=== PATIENT | female | born 1955 | race Hispanic/Latino ===

== ENCOUNTER 2024-04-06 15:07 | Inpatient (IN) | payer OTHER, MEDICARE ==
[~2024-04-06] VITALS: Ht 157.5 cm; Wt 71.9 kg
[2024-04-06] MEDS: morPHINE 4 MG SYG IVP ONE (16:05)
[2024-04-06] MEDS: 0.9%NACL 1000ML 1,000 ML IV ONE ×2 (16:05→16:51)
[2024-04-06] MEDS: ondanSETRON 4MG INJ IV ONE (16:05)
[2024-04-06 16:15] LABS: BASOPHILS % (AUTO) 0.4 % (0.0-5.0); EOSINOPHILS # (AUTO) 0.02 K/uL (0.00-0.70); EOSINOPHILS % (AUTO) 0.1 % (0.0-8.0); HEMATOCRIT 44.2 % (36-48); IMMATURE GRANULOCYTE ABSOLUTE 0.49 K/uL (0-1); LYMPHOCYTES # (AUTO) 1.4 K/uL (1.0-4.8); LYMPHOCYTES % (AUTO) 5.2 % (21.0-51.0); MEAN CORPUSCULAR HEMOGLOBIN 27.8 pg (27.0-33.0); MEAN CORPUSCULAR HGB CONC 33.3 g/dL (32.0-36.0); MEAN CORPUSCULAR VOLUME 83.7 fL (79-99); MONOCYTES # (AUTO) 1.6 K/uL (0.1-1.0); MONOCYTES % (AUTO) 5.6 % (3.0-13.0); NEUTROPHILS # (AUTO) 24.2 K/uL (1.8-7.7); NEUTROPHILS % (AUTO) 86.9 % (40.0-77.0); PLATELET COUNT (AUTO) 274 K/uL (130-400); RED BLOOD CELL COUNT(AUTO) 5.28 MIL/uL (4.00-5.50); RED CELL DISTRIBUTION WIDTH 14.2 % (11.0-15.5); WHITE BLOOD COUNT (AUTO) 27.8 K/uL (4.8-10.8)
[2024-04-06 16:28] LABS: CREATININE 1.3 mg/dL (0.5-1.0); POTASSIUM 3.9 mmol/L (3.5-5.1)
[2024-04-06 16:40] LABS: ALBUMIN 2.5 g/dL (3.5-5.0); BILIRUBIN,TOTAL 0.7 mg/dL (0.2-1.0); TOTAL PROTEIN, SERUM 7.4 g/dL (6.0-8.3)
[2024-04-06] MEDS: 0.9% NACL 500ML IV.SOLN 500 ML IV ONE (16:53)
[2024-04-06] MEDS: metRONIDazole 500MG/100ML BAG IV SCH (17:29)
[2024-04-06] MEDS: INSULIN humuLIN R 100 UNIT/ML 3ML IV SCH (19:43)
[2024-04-06] MEDS: levoFLOXacin 500 MG/D5W 100 ML 100 ML IV SCH (20:21)
[2024-04-06 20:47] VITALS: BP 157/89; PULSE 91; RESP 20; TEMP 98; O2SAT 97
[2024-04-06] MEDS ORDERED: doCUSate SODIUM 100 MG CAP PO PRN (21:00)
[2024-04-06] MEDS ORDERED: hydrALAZine 20MG/ML VIAL IV PRN (21:00)
[2024-04-06] MEDS ORDERED: TEMAZepam 15 MG CAPSULE PO PRN (21:00)
[2024-04-06] MEDS ORDERED: acetaMINOPHEN 650 MG SUPPOSITORY RC PRN (21:00)
[2024-04-06] MEDS: levoFLOXacin 500 MG/D5W 100 ML 100 ML IV ONE (21:03)
[2024-04-06 21:52] LABS: ABG BASE EXCESS -7.6 mmol/L (-2.0-3.0); ABG HCO3 17.4 mmol/L (21.0-28.0); ABG OXYGEN SATURATION 96.4 % (94.0-98.0); ABG PCO2 34 mmHg (32-45); ABG PH 7.324 (7.350-7.450); CARBON MONOXIDE 0.1 % (0.5-1.5); HHb 3.6; PO2, ARTERIAL BG 88.5 mmHg (83.0-108.0); VENT MODE, BG RA (ROOM AIR)
[2024-04-06] MEDS ORDERED: PoTASSium chloRIDE 20MEQ ER 20 MEQ ERTAB PO PRN (22:00)
[2024-04-06] MEDS ORDERED: PoTASSium chl 10% ELIXIR 20MEQ 20 MEQ/15 ML UDCUP PO PRN (22:00)
[2024-04-06] MEDS: 0.9%NACL 1000ML 1,000 ML IV SCH (22:19)
[2024-04-06] MEDS: doCUSate SODIUM 100 MG CAP PO SCH (22:19)
[2024-04-06 23:00] LABS: APPEARANCE,URINE CLOUDY (CLEAR); BILIRUBIN,URINE NEGATIVE (NEGATIVE); COLOR,URINE YELLOW (YELLOW); GLUCOSE, URINE (UA) 500 mg/dL (NEGATIVE); KETONES,URINE 40 mg/dL (NEGATIVE); LEUKOCYTE ESTERASE ,URINE NEGATIVE Leu/uL (NEGATIVE); MUCUS,URINE FEW LPF (None Seen); NITRATE,URINE NEGATIVE (NEGATIVE); OCCULT BLOOD,URINE NEGATIVE (NEGATIVE); PH,URINE 5.5 (5.0-8.0); PROTEIN,URINE 30 mg/dL (NEGATIVE); SQUAMOUS EPITHELIAL CELL,UR FEW /HPF (0-2); UROBILINOGEN,URINE 0.2 mg/dL (0.2-1.0)
[2024-04-07] VITALS (7 sets, daily range): BP systolic 112–155; BP diastolic 65–87; PULSE 98–115; RESP 15–20; TEMP 97.4–98.6; O2SAT 99–100
[2024-04-07] MEDS ORDERED: ATOR10 PO (00:08)
[2024-04-07] MEDS ORDERED: DULO60CA64 PO (00:08)
[2024-04-07] MEDS ORDERED: LISI2.5T13 PO (00:08)
[2024-04-07] MEDS ORDERED: METF-444 PO (00:08)
[2024-04-07] MEDS: INSULIN humuLIN R 100 UNIT/ML 3ML SQ SCH ×2 (00:33→17:08)
[2024-04-07] MEDS: ondanSETRON 4MG INJ IVP PRN (00:51)
[2024-04-07 01:22] LABS: SARS-CoV-2, RNA, NAAT NEGATIVE SARS CoV-2 (NEGATIVE)
[2024-04-07 01:23] LABS: RAPID GROUP A STREP negative (NEGATIVE)
[2024-04-07 01:30] LABS: INFLUENZA TYPE A Negative For Type A (NEGATIVE); INFLUENZA TYPE B Negative For Type B (NEGATIVE)
[2024-04-07] MEDS: metRONIDazole 500MG/100ML BAG 100 ML IVPB SCH ×2 (02:34→10:20)
[2024-04-07 05:12] LABS: BASOPHILS # (AUTO) 0.11 K/uL (0.00-0.20); BASOPHILS % (AUTO) 0.5 % (0.0-5.0); EOSINOPHILS # (AUTO) 0.05 K/uL (0.00-0.70); EOSINOPHILS % (AUTO) 0.2 % (0.0-8.0); HEMATOCRIT 40.7 % (36-48); HEMOGLOBIN A1C 6.7 % (4.0-6.0); IMMATURE GRANULOCYTE ABSOLUTE 0.57 K/uL (0-1); LYMPHOCYTES # (AUTO) 1.4 K/uL (1.0-4.8); LYMPHOCYTES % (AUTO) 5.7 % (21.0-51.0); MEAN CORPUSCULAR HEMOGLOBIN 27.8 pg (27.0-33.0); MEAN CORPUSCULAR HGB CONC 32.9 g/dL (32.0-36.0); MEAN CORPUSCULAR VOLUME 84.4 fL (79-99); MONOCYTES # (AUTO) 1.7 K/uL (0.1-1.0); MONOCYTES % (AUTO) 6.9 % (3.0-13.0); NEUTROPHILS # (AUTO) 20.4 K/uL (1.8-7.7); NEUTROPHILS % (AUTO) 84.3 % (40.0-77.0); PLATELET COUNT (AUTO) 222 K/uL (130-400); RED BLOOD CELL COUNT(AUTO) 4.82 MIL/uL (4.00-5.50); RED CELL DISTRIBUTION WIDTH 14.2 % (11.0-15.5); WHITE BLOOD COUNT (AUTO) 24.2 K/uL (4.8-10.8)
[2024-04-07 05:28] LABS: MAGNESIUM 1.5 mg/dL (1.80-2.40); PHOSPHORUS 2.9 mg/dL (2.5-4.9); POTASSIUM 4.6 mmol/L (3.5-5.1); THYROID STIMULATING HORMONE 3.33 uIU/mL (0.36-3.74)
[2024-04-07] MEDS: PANTOPrazole 40 MG TAB DR PO SCH (08:26)
[2024-04-07] MEDS: ENOXAPARIN SODIUM 40 MG/0.4 ML SYRINGE SQ SCH (08:27)
[2024-04-07] MEDS: LACTULOSE 20 GM/30 ML UDCUP PO PRN (12:15)
[2024-04-07] MEDS ORDERED: PoTASSium chloRIDE 10MEQ SR 10 MEQ/TAB TAB.SR.24H PO PRN (13:30)
[2024-04-07] MEDS: MAGNESIUM 2GM PREMIX 50ML 50 ML IV PRN (17:03)
[2024-04-07] MEDS ORDERED: 0.9% NACL 500ML IV.SOLN 500 ML IV SCH (17:52)
[2024-04-07] MEDS: ondanSETRON 4MG INJ IVP ONE (23:17)
[2024-04-08] VITALS (7 sets, daily range): BP systolic 103–149; BP diastolic 65–77; PULSE 99–115; RESP 18–20; TEMP 97.3–98.4; O2SAT 96–98
[2024-04-08] MEDS: PROMETHAZINE HCL 25 MG/ML 1ML AMPULE IM PRN (01:51)
[2024-04-08 11:43] LABS: BASOPHILS # (AUTO) 0.08 K/uL (0.00-0.20); BASOPHILS % (AUTO) 0.3 % (0.0-5.0); EOSINOPHILS # (AUTO) 0.01 K/uL (0.00-0.70); HEMATOCRIT 35.9 % (36-48); IMMATURE GRANULOCYTE ABSOLUTE 0.91 K/uL (0-1); LYMPHOCYTES # (AUTO) 1.5 K/uL (1.0-4.8); LYMPHOCYTES % (AUTO) 5.9 % (21.0-51.0); MEAN CORPUSCULAR HEMOGLOBIN 27.8 pg (27.0-33.0); MEAN CORPUSCULAR HGB CONC 32.9 g/dL (32.0-36.0); MEAN CORPUSCULAR VOLUME 84.7 fL (79-99); MONOCYTES # (AUTO) 1.5 K/uL (0.1-1.0); MONOCYTES % (AUTO) 5.9 % (3.0-13.0); NEUTROPHILS # (AUTO) 21.1 K/uL (1.8-7.7); NEUTROPHILS % (AUTO) 84.3 % (40.0-77.0); PLATELET COUNT (AUTO) 271 K/uL (130-400); RED BLOOD CELL COUNT(AUTO) 4.24 MIL/uL (4.00-5.50); RED CELL DISTRIBUTION WIDTH 14.7 % (11.0-15.5)
[2024-04-08 11:50] LABS: CREATININE 1.3 mg/dL (0.5-1.0); POTASSIUM 4.7 mmol/L (3.5-5.1)
[2024-04-08 11:54] LABS: ALBUMIN 1.9 g/dL (3.5-5.0); BILIRUBIN,TOTAL 0.4 mg/dL (0.2-1.0); TOTAL PROTEIN, SERUM 5.6 g/dL (6.0-8.3)
[2024-04-08] MEDS: metoCLOPRAmide 10 MG/2 ML VIAL IVP SCH (12:34)
[2024-04-08] MEDS: ZOSYN 3.375GM +NS 50ML IV SCH (20:08)
[2024-04-09] VITALS (8 sets, daily range): BP systolic 114–139; BP diastolic 41–77; PULSE 63–120; RESP 18–32; TEMP 98–98.7; O2SAT 96–97
[2024-04-09 05:03] LABS: BASOPHILS # (AUTO) 0.05 K/uL (0.00-0.20); BASOPHILS % (AUTO) 0.3 % (0.0-5.0); EOSINOPHILS # (AUTO) 0.04 K/uL (0.00-0.70); EOSINOPHILS % (AUTO) 0.2 % (0.0-8.0); HEMATOCRIT 30.7 % (36-48); IMMATURE GRANULOCYTE ABSOLUTE 1.21 K/uL (0-1); LYMPHOCYTES # (AUTO) 1.9 K/uL (1.0-4.8); LYMPHOCYTES % (AUTO) 9.7 % (21.0-51.0); MEAN CORPUSCULAR HGB CONC 32.9 g/dL (32.0-36.0); MONOCYTES # (AUTO) 1.3 K/uL (0.1-1.0); MONOCYTES % (AUTO) 6.7 % (3.0-13.0); NEUTROPHILS # (AUTO) 15.1 K/uL (1.8-7.7); NEUTROPHILS % (AUTO) 76.9 % (40.0-77.0); PLATELET COUNT (AUTO) 240 K/uL (130-400); RED BLOOD CELL COUNT(AUTO) 3.61 MIL/uL (4.00-5.50); RED CELL DISTRIBUTION WIDTH 14.7 % (11.0-15.5); WHITE BLOOD COUNT (AUTO) 19.6 K/uL (4.8-10.8)
[2024-04-09 05:28] LABS: ALBUMIN 1.5 g/dL (3.5-5.0); BILIRUBIN,TOTAL 0.5 mg/dL (0.2-1.0); CREATININE 0.8 mg/dL (0.5-1.0); MAGNESIUM 1.8 mg/dL (1.80-2.40); POTASSIUM 4.5 mmol/L (3.5-5.1); TOTAL PROTEIN, SERUM 4.8 g/dL (6.0-8.3)
[2024-04-09] MEDS: furoSEMIDE 20MG VIAL IV ONE (16:56)
[2024-04-09] MEDS: PEG 3350/NA SULF,BICARB,CL/KCL 4000 ML SOLN PO ONE (17:38)
[2024-04-09] MEDS: BisaCODYL 10 MG SUPP.RECT RC ONE (17:38)
[2024-04-09] MEDS ORDERED: IOHEXOL 350 MG/ML 100ML INFUS..BTL IV ONE (18:21)
[2024-04-10] VITALS (12 sets, daily range): BP systolic 111–144; BP diastolic 56–81; PULSE 86–124; RESP 16–22; TEMP 97.4–98.7; O2SAT 97–100
[2024-04-10 05:10] LABS: BASOPHILS # (AUTO) 0.12 K/uL (0.00-0.20); BASOPHILS % (AUTO) 0.5 % (0.0-5.0); EOSINOPHILS # (AUTO) 0.04 K/uL (0.00-0.70); EOSINOPHILS % (AUTO) 0.2 % (0.0-8.0); HEMATOCRIT 31.7 % (36-48); IMMATURE GRANULOCYTE ABSOLUTE 1.71 K/uL (0-1); LYMPHOCYTES # (AUTO) 2.1 K/uL (1.0-4.8); MEAN CORPUSCULAR HEMOGLOBIN 27.7 pg (27.0-33.0); MEAN CORPUSCULAR HGB CONC 32.8 g/dL (32.0-36.0); MEAN CORPUSCULAR VOLUME 84.5 fL (79-99); MONOCYTES # (AUTO) 1.7 K/uL (0.1-1.0); MONOCYTES % (AUTO) 6.3 % (3.0-13.0); NEUTROPHILS # (AUTO) 20.8 K/uL (1.8-7.7); NEUTROPHILS % (AUTO) 78.5 % (40.0-77.0); NUCLEATED RED BLOOD CELLS 0.1 % (0.0-0.19); PLATELET COUNT (AUTO) 323 K/uL (130-400); RED BLOOD CELL COUNT(AUTO) 3.75 MIL/uL (4.00-5.50); RED CELL DISTRIBUTION WIDTH 14.8 % (11.0-15.5); WHITE BLOOD COUNT (AUTO) 26.4 K/uL (4.8-10.8)
[2024-04-10 05:32] LABS: ALBUMIN 1.9 g/dL (3.5-5.0); BILIRUBIN,TOTAL 0.6 mg/dL (0.2-1.0); MAGNESIUM 1.9 mg/dL (1.80-2.40); POTASSIUM 3.8 mmol/L (3.5-5.1); TOTAL PROTEIN, SERUM 5.7 g/dL (6.0-8.3)
[2024-04-10] MEDS: IpraTROPium 0.5 MG/2.5 ML INH IH SCH ×2 (12:11→18:49)
[2024-04-10] MEDS: furoSEMIDE 20MG VIAL IV ONE (14:22)
[2024-04-10] MEDS: SCOPOLAMINE HYDROBROMIDE 1 EACH ADH..PATCH TD SCH (14:23)
[2024-04-10 15:29] LABS: ABG BASE EXCESS -0.9 mmol/L (-2.0-3.0); ABG HCO3 22.2 mmol/L (21.0-28.0); ABG PCO2 33 mmHg (32-45); ABG PH 7.449 (7.350-7.450); PO2, ARTERIAL BG 76.9 mmHg (83.0-108.0); VENT MODE, BG NC (ROOM AIR)
[2024-04-11] VITALS (13 sets, daily range): BP systolic 111–141; BP diastolic 52–69; PULSE 78–96; RESP 17–20; TEMP 98.2–98.8; O2SAT 97–100
[2024-04-11 06:19] LABS: BASOPHILS # (AUTO) 0.09 K/uL (0.00-0.20); BASOPHILS % (AUTO) 0.4 % (0.0-5.0); EOSINOPHILS # (AUTO) 0.61 K/uL (0.00-0.70); EOSINOPHILS % (AUTO) 2.7 % (0.0-8.0); HEMATOCRIT 26.5 % (36-48); LYMPHOCYTES # (AUTO) 2.1 K/uL (1.0-4.8); MEAN CORPUSCULAR HEMOGLOBIN 27.7 pg (27.0-33.0); MEAN CORPUSCULAR HGB CONC 32.5 g/dL (32.0-36.0); MEAN CORPUSCULAR VOLUME 85.2 fL (79-99); MONOCYTES # (AUTO) 1.7 K/uL (0.1-1.0); MONOCYTES % (AUTO) 7.5 % (3.0-13.0); NEUTROPHILS # (AUTO) 16.8 K/uL (1.8-7.7); NEUTROPHILS % (AUTO) 73.8 % (40.0-77.0); PLATELET COUNT (AUTO) 271 K/uL (130-400); RED BLOOD CELL COUNT(AUTO) 3.11 MIL/uL (4.00-5.50); RED CELL DISTRIBUTION WIDTH 15.2 % (11.0-15.5); WHITE BLOOD COUNT (AUTO) 22.8 K/uL (4.8-10.8)
[2024-04-11 06:47] LABS: ALBUMIN 1.6 g/dL (3.5-5.0); BILIRUBIN,TOTAL 0.5 mg/dL (0.2-1.0); CREATININE 0.8 mg/dL (0.5-1.0); MAGNESIUM 1.9 mg/dL (1.80-2.40); POTASSIUM 3.4 mmol/L (3.5-5.1); THYROID STIMULATING HORMONE 6.72 uIU/mL (0.36-3.74); TOTAL PROTEIN, SERUM 5.1 g/dL (6.0-8.3)
[2024-04-11 07:24] LABS: B-TYPE NATRIURETIC PEPTIDE 37 pg/mL (0-100)
[2024-04-11 12:14] LABS: C DIFFICILE TOXIN A/B Not Detected (Not Detected); ENTEROAGGREGATIVE ECOLI Not Detected (Not Detected); GIARDIA LAMBLIA Not Detected (Not Detected); PLESIOMONAS SHIGELOIDES Not Detected (Not Detected); SAPOVIRUS Not Detected (Not Detected); SHIGELLA/ENTEROINVASIVE E COLI Not Detected (Not Detected); VIBRIO Not Detected (Not Detected); VIBRIO CHOLERAE Not Detected (Not Detected)
[2024-04-11] MEDS: PoTASSium chloRIDE 10MEQ/100ML 100 ML IV PRN (12:23)
[2024-04-11] MEDS: furoSEMIDE 40MG VIAL IV ONE (12:23)
[2024-04-11] MEDS: PEG 3350/NA SULF,BICARB,CL/KCL 4000 ML SOLN PO ONE (16:23)
[2024-04-11] MEDS: furoSEMIDE 20MG VIAL IV SCH (17:58)
[2024-04-12] VITALS (13 sets, daily range): BP systolic 104–150; BP diastolic 40–83; PULSE 92–117; RESP 16–21; TEMP 98.2–99.3; O2SAT 90–99
[2024-04-12 05:25] LABS: BASOPHILS # (AUTO) 0.12 K/uL (0.00-0.20); BASOPHILS % (AUTO) 0.4 % (0.0-5.0); EOSINOPHILS # (AUTO) 0.05 K/uL (0.00-0.70); EOSINOPHILS % (AUTO) 0.2 % (0.0-8.0); HEMATOCRIT 30.2 % (36-48); IMMATURE GRANULOCYTE ABSOLUTE 1.53 K/uL (0-1); LYMPHOCYTES # (AUTO) 2.1 K/uL (1.0-4.8); LYMPHOCYTES % (AUTO) 6.8 % (21.0-51.0); MEAN CORPUSCULAR HEMOGLOBIN 28.2 pg (27.0-33.0); MEAN CORPUSCULAR HGB CONC 33.1 g/dL (32.0-36.0); MEAN CORPUSCULAR VOLUME 85.1 fL (79-99); MONOCYTES # (AUTO) 1.7 K/uL (0.1-1.0); MONOCYTES % (AUTO) 5.7 % (3.0-13.0); NEUTROPHILS # (AUTO) 24.7 K/uL (1.8-7.7); NEUTROPHILS % (AUTO) 81.8 % (40.0-77.0); PLATELET COUNT (AUTO) 355 K/uL (130-400); RED BLOOD CELL COUNT(AUTO) 3.55 MIL/uL (4.00-5.50)
[2024-04-12 05:46] LABS: WHITE BLOOD COUNT (AUTO) 30.2 K/uL (4.8-10.8)
[2024-04-12 05:52] LABS: B-TYPE NATRIURETIC PEPTIDE 70 pg/mL (0-100)
[2024-04-12 06:06] LABS: ALANINE AMINOTRANSFERASE 19 U/L (12-78); ALBUMIN 2.1 g/dL (3.5-5.0); ASPARTATE AMINOTRANSFERASE 20 U/L (10-37); BILIRUBIN,TOTAL 1.1 mg/dL (0.2-1.0); CARBON DIOXIDE 29 mmol/L (21-32); CHLORIDE 97 mmol/L (101-111); CREATININE 1.1 mg/dL (0.5-1.0); GLOMERULAR FILTR. RATE CALC 54 mL/min (>90); GLUCOSE,RANDOM 164 mg/dL (70-105); PHOSPHORUS 4.2 mg/dL (2.5-4.9); POTASSIUM 3.1 mmol/L (3.5-5.1); SODIUM SERUM 135 mmol/L (136-145); TOTAL PROTEIN, SERUM 6.6 g/dL (6.0-8.3); UREA NITROGEN, BLOOD 14 mg/dL (7-18)
[2024-04-12 06:09] LABS: AMMONIA < 10 umol/L (11-32)
[2024-04-12 06:22] LABS: LYMPHOCYTES % (MANUAL) 8 % (22-44); MONOCYTES % (MANUAL) 8 % (2-9); SEGMENTED NEUTROPHILS % 84 % (40-70); TOTAL CELLS COUNTED 100
[2024-04-12 06:23] LABS: MAN.DIFF COMMENT-IMPRESSION MANUAL DIFFERENTIAL; PLATELET MORPHOLOGY COMMENT ADEQUATE; WBC MORPHOLOGY NORMAL
[2024-04-12] MEDS ORDERED: COMPOUND IV MISC 1 EACH IVSOLN MISC PRN (16:30)
[2024-04-12] MEDS: MEROPENEM 2 GM in 0.9%NACL 100ML 100 ML IV SCH (17:04)
[2024-04-13] VITALS (13 sets, daily range): BP systolic 108–120; BP diastolic 47–59; PULSE 81–94; RESP 17–20; TEMP 98.1–98.7; O2SAT 97–99
[2024-04-13] MEDS: PROCHLORPERAZINE 10MG/2ML INJ IV ONE (04:58)
[2024-04-13] MEDS: PANTOPrazole 40 MG/VIAL IVP SCH (05:00)
[2024-04-13 05:28] LABS: HEMATOCRIT 24.7 % (36-48); MEAN CORPUSCULAR HEMOGLOBIN 28.1 pg (27.0-33.0); MEAN CORPUSCULAR HGB CONC 32.8 g/dL (32.0-36.0); MEAN CORPUSCULAR VOLUME 85.8 fL (79-99); RED BLOOD CELL COUNT(AUTO) 2.88 MIL/uL (4.00-5.50); RED CELL DISTRIBUTION WIDTH 14.9 % (11.0-15.5); WHITE BLOOD COUNT (AUTO) 23.1 K/uL (4.8-10.8)
[2024-04-13 05:36] LABS: CREATININE 0.6 mg/dL (0.5-1.0); POTASSIUM 3.3 mmol/L (3.5-5.1)
[2024-04-13] MEDS ORDERED: morPHINE 4 MG SYG IM PRN (08:30)
[2024-04-13] MEDS: morPHINE 4 MG SYG IV PRN (08:35)
[2024-04-13] MEDS: POTASSIUM CHLORIDE 10MEQ/100ML IV SCH (08:36)
[2024-04-13 08:43] LABS: INR 1.1 (0.85-1.15); PROTHROMBIN TIME 11.8 SEC (9.6-11.6)
[2024-04-13 08:45] LABS: PARTIAL THROMBOPLASTIN TIME 26.1 SEC (26.3-35.5)
[2024-04-13] MEDS: LACTATED RINGERS 1000ML 1,000 ML IV SCH (11:22)
[2024-04-13] MEDS: MEROPENEM 1 GM in 0.9%NACL 100ML IVPB SCH (14:28)
[2024-04-13] MEDS: CLINIMIX-E 5%AA /D15%W 2000ML 2,000 ML IV ONE (17:02)
[2024-04-14] VITALS (15 sets, daily range): BP systolic 101–128; BP diastolic 41–50; PULSE 75–92; RESP 16–20; TEMP 98.3–99.7; O2SAT 87–97
[2024-04-14 05:50] LABS: HEMATOCRIT 22.7 % (36-48); MEAN CORPUSCULAR HEMOGLOBIN 27.8 pg (27.0-33.0); MEAN CORPUSCULAR HGB CONC 31.7 g/dL (32.0-36.0); MEAN CORPUSCULAR VOLUME 87.6 fL (79-99); RED BLOOD CELL COUNT(AUTO) 2.59 MIL/uL (4.00-5.50); RED CELL DISTRIBUTION WIDTH 15.1 % (11.0-15.5); WHITE BLOOD COUNT (AUTO) 19.3 K/uL (4.8-10.8)
[2024-04-14 06:09] LABS: CREATININE 0.7 mg/dL (0.5-1.0); MAGNESIUM 2.2 mg/dL (1.80-2.40); PHOSPHORUS 2.4 mg/dL (2.5-4.9); POTASSIUM 4.1 mmol/L (3.5-5.1)
[2024-04-14] MEDS: CLINIMIX-E 5%AA /D15%W 2000ML 2,000 ML IV ONE (18:35)
[2024-04-15] VITALS (15 sets, daily range): BP systolic 121–140; BP diastolic 56–75; PULSE 76–103; RESP 16–20; TEMP 98.3–99.8; O2SAT 97–99
[2024-04-15 05:32] LABS: HEMATOCRIT 23.3 % (36-48); MEAN CORPUSCULAR HEMOGLOBIN 27.9 pg (27.0-33.0); MEAN CORPUSCULAR HGB CONC 31.3 g/dL (32.0-36.0); MEAN CORPUSCULAR VOLUME 88.9 fL (79-99); RED BLOOD CELL COUNT(AUTO) 2.62 MIL/uL (4.00-5.50); RED CELL DISTRIBUTION WIDTH 15.1 % (11.0-15.5); WHITE BLOOD COUNT (AUTO) 17.4 K/uL (4.8-10.8)
[2024-04-15 06:12] LABS: ALBUMIN 1.3 g/dL (3.5-5.0); BILIRUBIN,TOTAL 0.6 mg/dL (0.2-1.0); CREATININE 0.5 mg/dL (0.5-1.0); MAGNESIUM 1.9 mg/dL (1.80-2.40); PHOSPHORUS 2.6 mg/dL (2.5-4.9); POTASSIUM 4.1 mmol/L (3.5-5.1)
[2024-04-15] MEDS: furoSEMIDE 20MG VIAL IVP SCH (16:01)
[2024-04-15] MEDS: CLINIMIX-E 5%AA /D15%W 2000ML 2,000 ML IV ONE (20:12)
[2024-04-16] VITALS (15 sets, daily range): BP systolic 122–140; BP diastolic 59–72; PULSE 70–109; RESP 14–20; TEMP 98–99.2; O2SAT 93–96
[2024-04-16 03:20] LABS: HEMATOCRIT 24.2 % (36-48); MEAN CORPUSCULAR HGB CONC 32.6 g/dL (32.0-36.0); MEAN CORPUSCULAR VOLUME 85.8 fL (79-99); RED BLOOD CELL COUNT(AUTO) 2.82 MIL/uL (4.00-5.50); RED CELL DISTRIBUTION WIDTH 14.8 % (11.0-15.5); WHITE BLOOD COUNT (AUTO) 14.3 K/uL (4.8-10.8)
[2024-04-16 03:28] LABS: CREATININE 0.5 mg/dL (0.5-1.0); MAGNESIUM 1.8 mg/dL (1.80-2.40); POTASSIUM 4.1 mmol/L (3.5-5.1)
[2024-04-16] MEDS: MAGNESIUM 2GM PREMIX 50ML 50 ML IV PRN (03:43)
[2024-04-16] MEDS: CLINIMIX-E 5%AA /D15%W 2000ML 2,000 ML IV ONE (20:28)
[2024-04-17] VITALS (14 sets, daily range): BP systolic 105–135; BP diastolic 54–73; PULSE 85–108; RESP 16–20; TEMP 98–100.3; O2SAT 95–100
[2024-04-17] MEDS ORDERED: metRONIDazole 500 MG TABLET PO SCH (10:00)
[2024-04-17 10:37] LABS: BASOPHILS # (AUTO) 0.04 K/uL (0.00-0.20); BASOPHILS % (AUTO) 0.3 % (0.0-5.0); EOSINOPHILS % (AUTO) 1.6 % (0.0-8.0); HEMATOCRIT 29.4 % (36-48); IMMATURE GRANULOCYTE ABSOLUTE 0.35 K/uL (0-1); LYMPHOCYTES # (AUTO) 1.1 K/uL (1.0-4.8); LYMPHOCYTES % (AUTO) 8.8 % (21.0-51.0); MEAN CORPUSCULAR HEMOGLOBIN 27.6 pg (27.0-33.0); MEAN CORPUSCULAR HGB CONC 27.2 g/dL (32.0-36.0); MEAN CORPUSCULAR VOLUME 101.4 fL (79-99); MONOCYTES # (AUTO) 0.8 K/uL (0.1-1.0); MONOCYTES % (AUTO) 6.4 % (3.0-13.0); NEUTROPHILS # (AUTO) 9.9 K/uL (1.8-7.7); NEUTROPHILS % (AUTO) 80.1 % (40.0-77.0); PLATELET COUNT (AUTO) 231 K/uL (130-400); RED CELL DISTRIBUTION WIDTH 15.6 % (11.0-15.5); WHITE BLOOD COUNT (AUTO) 12.4 K/uL (4.8-10.8)
[2024-04-17 11:45] LABS: CREATININE 0.7 mg/dL (0.5-1.0); POTASSIUM 4.3 mmol/L (3.5-5.1)
[2024-04-17] MEDS: CLINIMIX-E 5%AA /D15%W 2000ML 2,000 ML IV ONE (20:51)
[2024-04-17] MEDS: acetaMINOPHEN 325 MG TAB PO PRN (22:01)
[2024-04-18] VITALS (12 sets, daily range): BP systolic 102–133; BP diastolic 57–69; PULSE 76–123; RESP 18–57; TEMP 98.1–99; O2SAT 98–100
[2024-04-18 04:39] LABS: BASOPHILS # (AUTO) 0.03 K/uL (0.00-0.20); BASOPHILS % (AUTO) 0.3 % (0.0-5.0); EOSINOPHILS # (AUTO) 0.25 K/uL (0.00-0.70); EOSINOPHILS % (AUTO) 2.1 % (0.0-8.0); HEMATOCRIT 27.2 % (36-48); IMMATURE GRANULOCYTE ABSOLUTE 0.38 K/uL (0-1); LYMPHOCYTES # (AUTO) 1.3 K/uL (1.0-4.8); LYMPHOCYTES % (AUTO) 10.5 % (21.0-51.0); MEAN CORPUSCULAR HEMOGLOBIN 26.7 pg (27.0-33.0); MEAN CORPUSCULAR HGB CONC 31.6 g/dL (32.0-36.0); MEAN CORPUSCULAR VOLUME 84.5 fL (79-99); MONOCYTES % (AUTO) 8.3 % (3.0-13.0); NEUTROPHILS % (AUTO) 75.6 % (40.0-77.0); PLATELET COUNT (AUTO) 239 K/uL (130-400); RED BLOOD CELL COUNT(AUTO) 3.22 MIL/uL (4.00-5.50); RED CELL DISTRIBUTION WIDTH 14.6 % (11.0-15.5); WHITE BLOOD COUNT (AUTO) 11.9 K/uL (4.8-10.8)
[2024-04-18 05:12] LABS: ALBUMIN 1.8 g/dL (3.5-5.0); BILIRUBIN,DIRECT 0.5 mg/dL (0.0-0.3); BILIRUBIN,TOTAL 0.8 mg/dL (0.2-1.0); CREATININE 0.6 mg/dL (0.5-1.0); POTASSIUM 4.7 mmol/L (3.5-5.1); TOTAL PROTEIN, SERUM 6.3 g/dL (6.0-8.3)
[2024-04-18 05:15] LABS: B-TYPE NATRIURETIC PEPTIDE 44 pg/mL (0-100)
[2024-04-18] MEDS ORDERED: DIATR MEGLU/DIATRIZOATE SODIUM 30 ML BOTTLE ONE (10:00)
[2024-04-18] MEDS ORDERED: IOHEXOL-350 75 ML VIAL IV ONE (15:32)
[2024-04-19] VITALS (12 sets, daily range): BP systolic 97–148; BP diastolic 43–71; PULSE 77–105; RESP 14–20; TEMP 98.2–98.7; O2SAT 94–99
[2024-04-19 05:55] LABS: BASOPHILS # (AUTO) 0.03 K/uL (0.00-0.20); BASOPHILS % (AUTO) 0.3 % (0.0-5.0); EOSINOPHILS # (AUTO) 0.18 K/uL (0.00-0.70); EOSINOPHILS % (AUTO) 1.6 % (0.0-8.0); HEMATOCRIT 26.9 % (36-48); IMMATURE GRANULOCYTE ABSOLUTE 0.28 K/uL (0-1); LYMPHOCYTES # (AUTO) 1.5 K/uL (1.0-4.8); LYMPHOCYTES % (AUTO) 13.3 % (21.0-51.0); MEAN CORPUSCULAR VOLUME 84.6 fL (79-99); MONOCYTES # (AUTO) 0.9 K/uL (0.1-1.0); MONOCYTES % (AUTO) 8.2 % (3.0-13.0); NEUTROPHILS # (AUTO) 8.1 K/uL (1.8-7.7); PLATELET COUNT (AUTO) 234 K/uL (130-400); RED BLOOD CELL COUNT(AUTO) 3.18 MIL/uL (4.00-5.50); RED CELL DISTRIBUTION WIDTH 14.6 % (11.0-15.5); WHITE BLOOD COUNT (AUTO) 10.9 K/uL (4.8-10.8)
[2024-04-19 06:32] LABS: ALBUMIN 1.7 g/dL (3.5-5.0); BILIRUBIN,TOTAL 0.5 mg/dL (0.2-1.0); CREATININE 0.7 mg/dL (0.5-1.0); MAGNESIUM 2.1 mg/dL (1.80-2.40); POTASSIUM 5.1 mmol/L (3.5-5.1); TOTAL PROTEIN, SERUM 6.2 g/dL (6.0-8.3)
[2024-04-19 06:33] LABS: B-TYPE NATRIURETIC PEPTIDE 36 pg/mL (0-100)
[2024-04-19] MEDS: furoSEMIDE 20MG VIAL IV SCH (12:18)
[2024-04-19] MEDS: CLINIMIX-E 5%AA /D15%W 2000ML 2,000 ML IV ONE (15:30)
[2024-04-19] MEDS ORDERED: DIATR MEGLU/DIATRIZOATE SODIUM 30 ML BOTTLE ONE (16:21)
[2024-04-20] VITALS (12 sets, daily range): BP systolic 92–112; BP diastolic 43–65; PULSE 90–110; RESP 13–20; TEMP 98.2–98.9; O2SAT 92–96
[2024-04-20] MEDS: CLINIMIX-E 5%AA /D15%W 2000ML 2,000 ML IV ONE (12:11)
[2024-04-20] MEDS: furoSEMIDE 20MG VIAL IV SCH (23:49)
[2024-04-21] VITALS (14 sets, daily range): BP systolic 98–123; BP diastolic 54–67; PULSE 85–98; RESP 16–24; TEMP 98.2–98.7; O2SAT 97–99
[2024-04-21 05:27] LABS: BASOPHILS # (AUTO) 0.03 K/uL (0.00-0.20); BASOPHILS % (AUTO) 0.3 % (0.0-5.0); EOSINOPHILS # (AUTO) 0.09 K/uL (0.00-0.70); EOSINOPHILS % (AUTO) 0.9 % (0.0-8.0); HEMATOCRIT 26.2 % (36-48); IMMATURE GRANULOCYTE ABSOLUTE 0.17 K/uL (0-1); LYMPHOCYTES # (AUTO) 1.9 K/uL (1.0-4.8); LYMPHOCYTES % (AUTO) 19.3 % (21.0-51.0); MEAN CORPUSCULAR HEMOGLOBIN 27.1 pg (27.0-33.0); MEAN CORPUSCULAR HGB CONC 31.7 g/dL (32.0-36.0); MEAN CORPUSCULAR VOLUME 85.6 fL (79-99); MONOCYTES # (AUTO) 0.9 K/uL (0.1-1.0); NEUTROPHILS # (AUTO) 6.7 K/uL (1.8-7.7); NEUTROPHILS % (AUTO) 68.8 % (40.0-77.0); PLATELET COUNT (AUTO) 232 K/uL (130-400); RED BLOOD CELL COUNT(AUTO) 3.06 MIL/uL (4.00-5.50); RED CELL DISTRIBUTION WIDTH 14.6 % (11.0-15.5); WHITE BLOOD COUNT (AUTO) 9.7 K/uL (4.8-10.8)
[2024-04-21 05:38] LABS: CREATININE 0.7 mg/dL (0.5-1.0); POTASSIUM 4.4 mmol/L (3.5-5.1)
[2024-04-21 05:40] LABS: ALBUMIN 1.8 g/dL (3.5-5.0); BILIRUBIN,TOTAL 0.4 mg/dL (0.2-1.0); TOTAL PROTEIN, SERUM 6.2 g/dL (6.0-8.3)
[2024-04-21] MEDS: CLINIMIX-E 5%AA /D15%W 2000ML 2,000 ML IV ONE (12:48)
[2024-04-21 12:49] LABS: INR 1.22 (0.85-1.15)
[2024-04-21 15:45] LABS: APPEARANCE,URINE CLEAR (CLEAR); BILIRUBIN,URINE NEGATIVE (NEGATIVE); COLOR,URINE COLORLESS (YELLOW); GLUCOSE, URINE (UA) 200 mg/dL (NEGATIVE); KETONES,URINE NEGATIVE (NEGATIVE); LEUKOCYTE ESTERASE ,URINE NEGATIVE Leu/uL (NEGATIVE); NITRATE,URINE NEGATIVE (NEGATIVE); OCCULT BLOOD,URINE LARGE (NEGATIVE); PROTEIN,URINE 10 mg/dL (NEGATIVE); UROBILINOGEN,URINE 0.2 mg/dL (0.2-1.0)
[2024-04-21 15:49] LABS: ADD UA MICROSCOPIC YES
[2024-04-21 16:06] LABS: MUCUS,URINE RARE LPF (None Seen); RBC,URINE TNTC /HPF (0-1); SQUAMOUS EPITHELIAL CELL,UR RARE /HPF (0-2); UNCLASSIFIED CRYSTAL 4 /HPF (None Seen); WBC,URINE 51-100 /HPF (0-1)
[2024-04-22] VITALS (14 sets, daily range): BP systolic 98–126; BP diastolic 51–69; PULSE 87–103; RESP 16–19; TEMP 98.1–98.6; O2SAT 95–99
[2024-04-22 05:39] LABS: BASOPHILS # (AUTO) 0.04 K/uL (0.00-0.20); BASOPHILS % (AUTO) 0.4 % (0.0-5.0); EOSINOPHILS # (AUTO) 0.16 K/uL (0.00-0.70); EOSINOPHILS % (AUTO) 1.7 % (0.0-8.0); IMMATURE GRANULOCYTE ABSOLUTE 0.19 K/uL (0-1); LYMPHOCYTES # (AUTO) 1.8 K/uL (1.0-4.8); LYMPHOCYTES % (AUTO) 19.5 % (21.0-51.0); MEAN CORPUSCULAR HEMOGLOBIN 27.5 pg (27.0-33.0); MEAN CORPUSCULAR HGB CONC 32.1 g/dL (32.0-36.0); MEAN CORPUSCULAR VOLUME 85.6 fL (79-99); MONOCYTES # (AUTO) 0.8 K/uL (0.1-1.0); MONOCYTES % (AUTO) 8.6 % (3.0-13.0); NEUTROPHILS # (AUTO) 6.3 K/uL (1.8-7.7); NEUTROPHILS % (AUTO) 67.8 % (40.0-77.0); PLATELET COUNT (AUTO) 249 K/uL (130-400); RED BLOOD CELL COUNT(AUTO) 3.27 MIL/uL (4.00-5.50); RED CELL DISTRIBUTION WIDTH 14.3 % (11.0-15.5); WHITE BLOOD COUNT (AUTO) 9.3 K/uL (4.8-10.8)
[2024-04-23] VITALS (13 sets, daily range): BP systolic 107–137; BP diastolic 46–91; PULSE 66–103; RESP 16–20; TEMP 97.9–98.9; O2SAT 94–98
[2024-04-23] MEDS: CLINIMIX-E 5%AA /D15%W 2000ML 2,000 ML IV ONE (05:54)
[2024-04-23] MEDS: polyETHYLene GLYCol 3350 17 GM POWD.PACK PO ONE (15:33)
[2024-04-23] MEDS ORDERED: CLINIMIX-E 5%AA /D15%W 2000ML 2,000 ML IV NR (19:00)
[2024-04-24] VITALS (12 sets, daily range): BP systolic 95–122; BP diastolic 46–65; PULSE 70–100; RESP 12–24; TEMP 97.5–99; O2SAT 93–98
[2024-04-24 05:15] LABS: C DIFFICILE TOXIN A/B Not Detected (Not Detected); ENTEROAGGREGATIVE ECOLI Not Detected (Not Detected); GIARDIA LAMBLIA Not Detected (Not Detected); PLESIOMONAS SHIGELOIDES Not Detected (Not Detected); SAPOVIRUS Not Detected (Not Detected); SHIGELLA/ENTEROINVASIVE E COLI Not Detected (Not Detected); VIBRIO Not Detected (Not Detected); VIBRIO CHOLERAE Not Detected (Not Detected)
[2024-04-24 05:20] LABS: BASOPHILS # (AUTO) 0.05 K/uL (0.00-0.20); BASOPHILS % (AUTO) 0.5 % (0.0-5.0); EOSINOPHILS # (AUTO) 0.12 K/uL (0.00-0.70); EOSINOPHILS % (AUTO) 1.3 % (0.0-8.0); HEMATOCRIT 26.9 % (36-48); IMMATURE GRANULOCYTE ABSOLUTE 0.13 K/uL (0-1); LYMPHOCYTES # (AUTO) 2.2 K/uL (1.0-4.8); LYMPHOCYTES % (AUTO) 24.1 % (21.0-51.0); MEAN CORPUSCULAR HEMOGLOBIN 27.4 pg (27.0-33.0); MEAN CORPUSCULAR HGB CONC 32.3 g/dL (32.0-36.0); MEAN CORPUSCULAR VOLUME 84.6 fL (79-99); MONOCYTES # (AUTO) 0.9 K/uL (0.1-1.0); MONOCYTES % (AUTO) 10.1 % (3.0-13.0); NEUTROPHILS # (AUTO) 5.8 K/uL (1.8-7.7); NEUTROPHILS % (AUTO) 62.6 % (40.0-77.0); PLATELET COUNT (AUTO) 283 K/uL (130-400); RED BLOOD CELL COUNT(AUTO) 3.18 MIL/uL (4.00-5.50); RED CELL DISTRIBUTION WIDTH 14.6 % (11.0-15.5); WHITE BLOOD COUNT (AUTO) 9.3 K/uL (4.8-10.8)
[2024-04-24 05:43] LABS: CREATININE 0.7 mg/dL (0.5-1.0); POTASSIUM 4.3 mmol/L (3.5-5.1)
[2024-04-24] MEDS: CLINIMIX-E 5%AA /D15%W 2000ML 2,000 ML IV ONE (18:10)
[2024-04-25] VITALS (14 sets, daily range): BP systolic 109–117; BP diastolic 47–66; PULSE 88–97; RESP 16–18; TEMP 98.1–98.8; O2SAT 95–100
[2024-04-25 05:23] LABS: BASOPHILS # (AUTO) 0.03 K/uL (0.00-0.20); BASOPHILS % (AUTO) 0.4 % (0.0-5.0); EOSINOPHILS # (AUTO) 0.15 K/uL (0.00-0.70); EOSINOPHILS % (AUTO) 2.1 % (0.0-8.0); HEMATOCRIT 25.2 % (36-48); IMMATURE GRANULOCYTE ABSOLUTE 0.11 K/uL (0-1); LYMPHOCYTES # (AUTO) 1.7 K/uL (1.0-4.8); LYMPHOCYTES % (AUTO) 23.2 % (21.0-51.0); MEAN CORPUSCULAR HEMOGLOBIN 27.3 pg (27.0-33.0); MEAN CORPUSCULAR HGB CONC 32.1 g/dL (32.0-36.0); MEAN CORPUSCULAR VOLUME 84.8 fL (79-99); MONOCYTES # (AUTO) 0.6 K/uL (0.1-1.0); MONOCYTES % (AUTO) 8.7 % (3.0-13.0); NEUTROPHILS # (AUTO) 4.6 K/uL (1.8-7.7); NEUTROPHILS % (AUTO) 64.1 % (40.0-77.0); PLATELET COUNT (AUTO) 245 K/uL (130-400); RED BLOOD CELL COUNT(AUTO) 2.97 MIL/uL (4.00-5.50); RED CELL DISTRIBUTION WIDTH 14.7 % (11.0-15.5); WHITE BLOOD COUNT (AUTO) 7.2 K/uL (4.8-10.8)
[2024-04-25 05:42] LABS: CREATININE 0.8 mg/dL (0.5-1.0); POTASSIUM 4.4 mmol/L (3.5-5.1)
[2024-04-25] MEDS: CLINIMIX-E 5%AA /D15%W 2000ML 2,000 ML IV ONE (21:04)
[2024-04-26] VITALS (13 sets, daily range): BP systolic 96–130; BP diastolic 53–74; PULSE 87–106; RESP 16–18; TEMP 98–98.7; O2SAT 96–99
[2024-04-26 05:12] LABS: BASOPHILS # (AUTO) 0.04 K/uL (0.00-0.20); BASOPHILS % (AUTO) 0.6 % (0.0-5.0); EOSINOPHILS # (AUTO) 0.21 K/uL (0.00-0.70); EOSINOPHILS % (AUTO) 3.2 % (0.0-8.0); IMMATURE GRANULOCYTE ABSOLUTE 0.12 K/uL (0-1); LYMPHOCYTES # (AUTO) 1.9 K/uL (1.0-4.8); LYMPHOCYTES % (AUTO) 28.3 % (21.0-51.0); MEAN CORPUSCULAR HEMOGLOBIN 27.1 pg (27.0-33.0); MEAN CORPUSCULAR HGB CONC 31.6 g/dL (32.0-36.0); MEAN CORPUSCULAR VOLUME 85.6 fL (79-99); MONOCYTES # (AUTO) 0.7 K/uL (0.1-1.0); MONOCYTES % (AUTO) 10.3 % (3.0-13.0); NEUTROPHILS # (AUTO) 3.7 K/uL (1.8-7.7); NEUTROPHILS % (AUTO) 55.8 % (40.0-77.0); PLATELET COUNT (AUTO) 226 K/uL (130-400); RED BLOOD CELL COUNT(AUTO) 2.92 MIL/uL (4.00-5.50); RED CELL DISTRIBUTION WIDTH 14.6 % (11.0-15.5); WHITE BLOOD COUNT (AUTO) 6.6 K/uL (4.8-10.8)
[2024-04-26 05:29] LABS: CREATININE 0.7 mg/dL (0.5-1.0); POTASSIUM 4.3 mmol/L (3.5-5.1)
[2024-04-27] VITALS (8 sets, daily range): BP systolic 102–116; BP diastolic 52–65; PULSE 94–108; RESP 16–19; TEMP 98.6–99.3; O2SAT 97
[2024-04-27 06:18] LABS: BASOPHILS # (AUTO) 0.04 K/uL (0.00-0.20); BASOPHILS % (AUTO) 0.5 % (0.0-5.0); EOSINOPHILS # (AUTO) 0.26 K/uL (0.00-0.70); EOSINOPHILS % (AUTO) 3.3 % (0.0-8.0); HEMATOCRIT 27.4 % (36-48); IMMATURE GRANULOCYTE ABSOLUTE 0.14 K/uL (0-1); LYMPHOCYTES # (AUTO) 2.1 K/uL (1.0-4.8); LYMPHOCYTES % (AUTO) 27.3 % (21.0-51.0); MEAN CORPUSCULAR HGB CONC 32.1 g/dL (32.0-36.0); MONOCYTES # (AUTO) 0.9 K/uL (0.1-1.0); MONOCYTES % (AUTO) 11.9 % (3.0-13.0); NEUTROPHILS # (AUTO) 4.3 K/uL (1.8-7.7); NEUTROPHILS % (AUTO) 55.2 % (40.0-77.0); PLATELET COUNT (AUTO) 271 K/uL (130-400); RED BLOOD CELL COUNT(AUTO) 3.26 MIL/uL (4.00-5.50); RED CELL DISTRIBUTION WIDTH 14.6 % (11.0-15.5); WHITE BLOOD COUNT (AUTO) 7.8 K/uL (4.8-10.8)
[2024-04-27 06:31] LABS: CREATININE 0.9 mg/dL (0.5-1.0); POTASSIUM 4.3 mmol/L (3.5-5.1)
== END 2024-04-27 16:22 | disposition home or self-care (01) | DRG 871 ==
LOC: EDH 15:07 → EDHIP 19:31 → OBSVTOIN 19:31 → 3DH 20:44
PROVIDERS: ADMIT Internal Medicine Critical Care Medicine; ATTEND Internal Medicine Critical Care Medicine
PROC: 02HV33Z Insertion of Infusion Device into Superior Vena Cava, Percutaneous Approach (ICD-10-PCS; principal; 2024-04-13)
PROC: B548ZZA Ultrasonography of Superior Vena Cava, Guidance (ICD-10-PCS; 2024-04-13)
PROC: 05HY33Z Insertion of Infusion Device into Upper Vein, Percutaneous Approach (ICD-10-PCS; 2024-04-19)
DX: A41.9 Sepsis, unspecified organism (principal); I50.33 Acute on chronic diastolic (congestive) heart failure; J96.01 Acute respiratory failure with hypoxia; N17.0 Acute kidney failure with tubular necrosis; R18.8 Other ascites; E87.21 Acute metabolic acidosis; G72.81 Critical illness myopathy; J98.11 Atelectasis; N30.00 Acute cystitis without hematuria; K50.911 Crohn's disease, unspecified, with rectal bleeding; K52.9 Noninfective gastroenteritis and colitis, unspecified; K57.30 Diverticulosis of large intestine without perforation or abscess without bleeding; Z20.822 Contact with and (suspected) exposure to COVID-19; J40 Bronchitis, not specified as acute or chronic; E86.0 Dehydration; E87.8 Other disorders of electrolyte and fluid balance, not elsewhere classified; E88.09 Other disorders of plasma-protein metabolism, not elsewhere classified; E11.65 Type 2 diabetes mellitus with hyperglycemia; E78.00 Pure hypercholesterolemia, unspecified; E03.9 Hypothyroidism, unspecified; E87.6 Hypokalemia; I11.0 Hypertensive heart disease with heart failure; D64.9 Anemia, unspecified; E66.01 Morbid (severe) obesity due to excess calories; R65.20 Severe sepsis without septic shock; Z79.899 Other long term (current) drug therapy; Z79.84 Long term (current) use of oral hypoglycemic drugs; Z79.4 Long term (current) use of insulin; Z79.01 Long term (current) use of anticoagulants
CPT/HCPCS: 36415; 36569; 36600; 71045; 71250; 74018; 74174; 74176; 74178; 74250; 76770; 76856; 80048; 80053; 80076; 81001; 82010; 82140; 82435; 82803; 82947; 82948; 83036; 83605; 83630; 83690; 83735; 83880; 84100; 84132; 84145; 84295; 84439; 84443; 84484; 85018; 85025; 85027; 85610; 85730; 87040; 87086; 87177; 87324; 87338; 87507; 87635; 87804; 87880; 93005; 93306; 93356; 93970; 94640; 94664; C1894; G0378; J0780; J1450; J1650; J1815; J1940; J1956; J2185; J2270; J2405; J2470; J2543; J2550; J2765; J3475; J3480; J3490; Q9963; Q9967

== ENCOUNTER → 2024-05-13 | Outpatient (CLI) | payer OTHER, MEDICARE ==
[~2024-05-13] MED LIST: ATOR10 PO; DULO60CA64 PO; IOHEXOL 350 MG/ML 100ML INFUS..BTL IV ONE; LISI2.5T13 PO; METF-444 PO
== END | disposition home or self-care (01) ==
LOC: RAH 11:34
PROVIDERS: ATTEND Internal Medicine Gastroenterology
DX: K76.89 Other specified diseases of liver (principal); I70.0 Atherosclerosis of aorta; R60.0 Localized edema; R10.32 Left lower quadrant pain; R93.3 Abnormal findings on diagnostic imaging of other parts of digestive tract
CPT/HCPCS: 74174; Q9967

== ENCOUNTER 2024-06-24 20:40 | Inpatient (IN) | payer OTHER, MEDICARE ==
[~2024-06-24] VITALS: Ht 157.5 cm; Wt 62.4 kg
[~2024-06-24 20:40] MED LIST changes: -IOHEXOL 350 MG/ML 100ML INFUS..BTL IV ONE
--- NOTE | 2024-06-24 21:04 | ERN ---
ED Note History of Present Illness Stated Complaint: C/O FEELING FAINT TODAY Chief Complaint: Dizzy/Light Headed Time Seen by MD: 20:47 Dictation: PATIENT IS A 69-YEAR-OLD FEMALE HERE WITH HER DAUGHTER WITH COMPLAINTS OF HAVING NEAR SYNCOPAL EPISODE THIS AFTERNOON. PER THE PATIENT, SHE WAS SITTING WATCHING TV IN HER HOME WITH THE DOORBELL RANG SHE GOT UP TO ANSWER AND WHEN SHE DID SHE WENT TO THE DOOR THAT WAS HER NEIGHBOR AND SHE FELT LIKE SHE WAS GOING TO PAIN AND WAS CAUGHT BY THE NEIGHBOR. NO LOC NO NAUSEA VOMITING NO HEADACHE. GAIT IS STEADY TO TRIAGE. SHE STATES SHE JUST FEELS WEAK AND HAS HAD NAUSEA WITH EATING FOR THE LAST 3-4 WEEKS. SHE ALSO RELATES SHE WAS IN THE HOSP[facility] AT [facility] FOR MORE THAN A WEEK DUE TO DIVERTICULITIS DEHYDRATION. SHE STATES SHE SAW HER PRIMARY CARE DOCTOR AFTER BEING DISCHARGED FROM THE HOSPITAL AND HE ADVISED HER TO SEE [facility] HOWEVER HER APPOINTMENT IS NOT UNTIL LATER THIS WEEK. NIH IS 0 Allergies: Coded Allergies: No Known Drug Allergies (Unverified Allergy, Unknown, 04/06/24) Home Meds Reported Medications Lisinopril (Lisinopril) 2.5 Mg Tablet, 2.5 MG PO HS, TAB 04/07/24 Atorvastatin Calcium (LIPITOR) 20 Mg Tab, 20 MG PO HS, TAB 04/07/24 Metformin HCl (Metformin HCl) 500 Mg Tablet, 500 MG PO AM, TAB 04/07/24 Duloxetine HCl (Duloxetine HCl) 60 Mg Capsule.dr, 60 MG PO DAILY, CAP 04/07/24 Past Medical History Past Medical History: Diabetes-Type II, Hypertension, Hypothyroid Surgical History: Other PSYCH History: no pertinent psych hx History: Not Applicable RN Note Reviewed/Agreed w/PFSH: Yes Review of System Dictation CONSTITUTIONAL: NEGATIVE EXCEPT FOR HPI WEAK HEAD/FACE: NEGATIVE EXCEPT FOR HPI EENT: NEGATIVE EXCEPT FOR HPI RESPIRATORY: NEGATIVE EXCEPT FOR HPI GASTROINTESTINAL/ABDOMINAL: NEGATIVE EXCEPT FOR HPI NAUSEA GENITOURINARY: NEGATIVE EXCEPT FOR HPI MUSCULOSKELETAL: NEGATIVE EXCEPT FOR HPI INTEGUMENTARY: NEGATIVE EXCEPT FOR HPI NEUROLOGICAL/PSYCH: NEGATIVE EXCEPT FOR HPI HEMATOLOGIC/LYMPHATIC: NEGATIVE EXCEPT FOR HPI ALL SYSTEMS NEGATIVE, EXCEPT NOTED ABOVE. 13 POINT REVIEW OF SYSTEMS ASSESSED AND ALL NEGATIVE EXCEPT FOR ABOVE. Initial Vital Sign VS Vital Signs Date Time Temp Pulse Resp B/P (MAP) Pulse Ox O2 Delivery O2 Flow Rate FiO2 06/24/24 20:42 98.4 84 20 104/54 98 Room Air Physical Exam Dictation VITAL SIGNS REVIEWED GENERAL APPEARANCE: ALERT, ORIENTED X 3, NO ACUTE DISTRESS, WELL DEVELOPED, NOURISHED. HEAD AND FACE: NON-TRAUMATIC. EYES: PERRL, PINK CONJUNCTIVAS, EYELID NO TRAUMA, ANTERIOR CHAMBER WITH ARCUS SENILIS. EARS: PINNAS INTACT AND NO SIGNS OF TRAUMA OR ERYTHEMA EAR CANALS CLEAR AND NO DISCHARGE TM NO ERYTHEMA NOSE: NO DISCHARGE, NO BLEEDING. OROPHARYNX: MOUTH NORMAL, TONGUE PINK, PHARYNX CLEAR,NO ERYTHEMA, TONSILS NO EXUDATES, NO ABSCESSES NOTED, MUCOUS MEMBRANE MOIST NECK: SUPPLE, NON-TENDER, NO THYROMEGALY, NO MASSES, NO JVD, NO BRUITS BREAST:DEFERRED CHEST:NO TENDERNESS, NO CREPITUS, NO PARADOXICAL MOVEMENT, NO RETRACTIONS LUNGS:CLEAR, WELL-VENTILATED, SYMMETRIC, NO RALES, NO WHEEZING, NO RHONCHI, NO STRIDOR, GOOD BREATH SOUNDS BILATERALLY HEART: REGULAR RATE, REGULAR RHYTHM, NO MURMUR, NO GALLOPS VASCULAR: NO PERIPHERAL EDEMA, ABDOMEN: SOFT, POSITIVE BOWEL SOUNDS, NONDISTENDED, NO GUARDING, NONTENDER, NO REBOUND, NO MASSES NO HEPATOMEGALY, NO SPLENOMEGALY, NO HUNTER'S SIGN, NO HERNIAS. NO FOCAL TENDERNESS RECTAL: DEFERRED GENITAL: DEFERRED NEUROLOGICAL: NORMAL SPEECH, MOTOR FUNCTION INTACT, SENSORY FUNCTION INTACT NIH IS 0 MUSCULOSKELETAL: NECK NONTENDER, FULL RANGE OF MOTION, BACK NONTENDER, FULL RANGE OF MOTION, EXTREMITIES: NONTENDER, FULL RANGE OF MOTION SKIN: COLOR PINK, DRY, NO TURGOR, NO RASH, NO LACERATIONS, NO ABRASIONS, NO CONTUSIONS. LYMPHATIC: DEFERRED Results (Laboratory/Radiology) Laboratory/Radiology Laboratory Tests Test 06/24/24 21:13 White Blood Count 9.1 K/uL (4.8-10.8) Red Blood Count 4.73 MIL/uL (4.00-5.50) Hemoglobin 12.3 g/dL (12.0-16.0) Hematocrit 38.3 % (36-48) Mean Corpuscular Volume 81.0 fL (79-99) Mean Corpuscular Hemoglobin 26.0 pg (27.0-33.0) L Mean Corpuscular Hemoglobin Concent 32.1 g/dL (32.0-36.0) Red Cell Distribution Width 15.1 % (11.0-15.5) Platelet Count 356 K/uL (130-400) Mean Platelet Volume 9.9 fL (7.5-10.5) Immature Granulocyte % (Auto) 0.8 % (0-1) Neutrophils (%) (Auto) 40.2 % (40.0-77.0) Lymphocytes (%) (Auto) 48.3 % (21.0-51.0) Monocytes (%) (Auto) 10.0 % (3.0-13.0) Eosinophils (%) (Auto) 0.3 % (0.0-8.0) Basophils (%) (Auto) 0.4 % (0.0-5.0) Neutrophils # (Auto) 3.6 K/uL (1.8-7.7) Lymphocytes # (Auto) 4.4 K/uL (1.0-4.8) Monocytes # (Auto) 0.9 K/uL (0.1-1.0) Eosinophils # (Auto) 0.03 K/uL (0.00-0.70) Basophils # (Auto) 0.04 K/uL (0.00-0.20) Absolute Immature Granulocyte (auto 0.07 K/uL (0-1) Nucleated Red Blood Cells 0.0 % (0.0-0.19) Sodium Level 132 mmol/L (136-145) L Potassium Level 4.0 mmol/L (3.5-5.1) Chloride Level 91 mmol/L (101-111) L Carbon Dioxide Level 34 mmol/L (21-32) H Blood Urea Nitrogen 24 mg/dL (7-18) H Creatinine 1.7 mg/dL (0.5-1.0) H Glomerular Filtration Rate Calc 32 mL/min (>90) Random Glucose 153 mg/dL (70-105) H Total Calcium 9.6 mg/dL (8.5-10.1) Troponin I High Sensitivity 11 ng/L (4-50) Labs Reviewed?: Yes EKG Comment: EKG NORMAL SINUS RHYTHM/HEART RATE 89/AXIS NORMAL/NO ECTOPY ED Course ED Course Orders Procedure Category Date Status Time Cbc With Differential LAB 06/24/24 Complete 21: Troponin I High LAB 06/24/24 Complete Sensitivity 21:01 12 Lead Ekg Tracing- EKG 06/24/24 Complete Technical 21:01 0.9%Nacl 1000ml (Ns PHA 06/24/24 Complete 1000ml) 21:30 Basic Metabolic Panel LAB 06/24/24 Complete 21:01 Orthostatic Vital CPOE 06/24/24 Transmitted Signs 21:01 Ct Abdomen/Pelvis W/O CT 06/25/24 Logged Contrast 01:02 Current Medications Medications (Trade) Dose Ordered Sig/Andrea Route PRN Reason Start Time Stop Time Status Last Admin Dose Admin Sodium Chloride 1,000 ml @ 0 mls/hr ONCE ONCE IV 06/24/24 21:30 06/24/24 21:31 DC 06/25/24 00:57 Vital Signs Date Time Temp Pulse Resp B/P (MAP) Pulse Ox O2 Delivery O2 Flow Rate FiO2 06/24/24 20:42 98.4 84 20 104/54 98 Room Air 0 100 PATIENT WISHES TO BE ADMITTED TO THE HOSPITAL FOR FURTHER OBSERVATION AND TO UNDERSTAND WHY SHE IS HAVING VOMITING THAT HAS BEEN PERSISTENT WITH ANY KIND OF FOOD SINCE SHE WAS DISCHARGED FROM [facility] A WEEK AGO. SHE IS HAVING NO PAIN AT THIS TIME. HOWEVER SHE IS DEHYDRATED HAS A NEAR-SYNCOPE AND ACUTE KIDNEY INJURY WE WILL BE ADMITTED. 0120 SPOKE RODRÍGUEZ MERINO HOSPITALIST AND REVIEWED LABS EKG REHYDRATION AND NEAR SYNCOPAL FINDINGS. HE IS AWARE OF ORDERED A CT TO RULE OUT A PARTIAL BOWEL OBSTRUCTION AND PATIENT NEEDS TO BE ADMITTED FOR INTRACTABLE VOMITING WITH POSSIBLE SURGICAL CONSULTATION HE AGREED TO ADMIT HEART Score Response (Comments) Value History: Low suspicion (0) 0 Age: > 65yrs (+2) 2 Risk Factors: 1-2 risk factors (+1) 1 Initial Troponin: Normal limit (0) 0 Total 3 Medical Decision Making MDM MDM: DIFFERENTIAL DIAGNOSIS: ACS/AMI/NEAR-SYNCOPE/ELECTROLYTE IMBALANCE/DEHYDRATION/NAUSEA VOMITING RATIONALE: TESTS CONSIDERED AND ORDERED SECONDARY TO SHARED DECISION MAKING INCLUDE: LABS, ECG AND RADIOLOGY PREVIOUS OUTSIDE RECORDS REVIEWED: OLD ER VISITS. REVIEWED RISK OF COMPLICATION AND/OR MORBIDITY OR MORTALITY OF PATIENT MANAGEMENT: NONE SEE NURSE'S NOTES MEDICATIONS-PER MEDICATION RECONCILIATION SEE NURSE'S NOTES NEED FOR HOSPITALIZATION: PATIENT DOES MEET CRITERIA FOR HOSPITALIZATION. PATIENT WILL NEED TO BE ADMITTED FOR REHYDRATION/RULE OUT OBSTRUCTION OR PARTIAL OBSTRUCTION, NEAR-SYNCOPE NEED FOR EMERGENCY MAJOR/MINOR SURGERY: NO THERE ARE NO SOCIAL CONCERNS WITH THIS PATIENT. PRESCRIPTION DRUG MANAGEMENT PRESCRIPTIONS WILL INCLUDE SYMPTOMATIC CARE PATIENT'S PRIOR EXTERNAL MEDICAL RECORDS FROM OTHER ER VISITS WERE REVIEWED BY ME INDICATED. PRIOR TESTING AND RESULTS FROM PREVIOUS VISITS WERE REVIEWED. PRIOR TESTS WERE TAKEN INTO ACCOUNT WITH MEDICAL DECISION MAKING AND RESOURCE UTILIZATION, INDEPENDENT HISTORIAN/HISTORIANS WERE USED TO OBTAIN COMPLETE MEDICAL HISTORY. I INDEPENDENTLY INTERPRETED THE TEST THAT WERE PERFORMED, RESULTS WERE REVIEWED BY ME AND CONSIDERED FINDINGS ON RADIOLOGY IF ORDERED. MEDICAL MANAGEMENT AND EXAMINATION INTERPRETATION DISCUSSIONS WERE HAD BY ME WITH OTHER QUALIFIED HEALTHCARE PROFESSIONALS INDICATED FOR THE PATIENT'S CARE. DX & DISP Disposition: Inpatient Decision to Admit Time: 01:03 Departure Impression: Primary Impression: Intractable nausea and vomiting Additional Impressions: Acute kidney injury, Hyponatremia, Uncontrolled diabetes mellitus, Vasovagal syncope Condition: Stable Referrals: DOMINIK NEVES MD (PCP) Time of Disposition: 01:03 I have reviewed the case, and I agree with, Diagnosis and Plan JOYA DENTON NP Jun 24, 2024 21:04
[2024-06-24 21:22] LABS: BASOPHILS # (AUTO) 0.04 K/uL (0.00-0.20); BASOPHILS % (AUTO) 0.4 % (0.0-5.0); EOSINOPHILS # (AUTO) 0.03 K/uL (0.00-0.70); EOSINOPHILS % (AUTO) 0.3 % (0.0-8.0); HEMATOCRIT 38.3 % (36-48); IMMATURE GRANULOCYTE ABSOLUTE 0.07 K/uL (0-1); LYMPHOCYTES # (AUTO) 4.4 K/uL (1.0-4.8); LYMPHOCYTES % (AUTO) 48.3 % (21.0-51.0); MEAN CORPUSCULAR HGB CONC 32.1 g/dL (32.0-36.0); MONOCYTES # (AUTO) 0.9 K/uL (0.1-1.0); NEUTROPHILS # (AUTO) 3.6 K/uL (1.8-7.7); NEUTROPHILS % (AUTO) 40.2 % (40.0-77.0); PLATELET COUNT (AUTO) 356 K/uL (130-400); RED BLOOD CELL COUNT(AUTO) 4.73 MIL/uL (4.00-5.50); RED CELL DISTRIBUTION WIDTH 15.1 % (11.0-15.5); WHITE BLOOD COUNT (AUTO) 9.1 K/uL (4.8-10.8)
--- NOTE | 2024-06-24 21:37 | EKG ---
[facility] Test Date: 2024-06-24 Test Time: 21:31:20 Pat Name: DAYLIN SANDOVAL Department: [facility] Room: 315 Gender: F Front Desk Manager: [id number] : 1955 Requested By: JOYA DENTON Order Number: [id number] Reading MD: Corie Gottlieb Measurements Intervals Almond Rate: 89 P: 17 MN: 119 QRS: 21 QRSD: 81 T: 44 QT: 350 QTc: 426 Interpretive Statements Sinus rhythm Compared to ECG 04/06/2024 16:33:56 No significant changes Electronically Signed On 06-26-2024 05:18:52 BUNDLE HELPER by Corie Gottlieb Please click the below link to view image of tracing.
[2024-06-24 21:43] LABS: CREATININE 1.7 mg/dL (0.5-1.0)
[2024-06-25] MEDS: 0.9%NACL 1000ML 1,000 ML IV ONE (00:57)
[2024-06-25] MEDS ORDERED: acetaMINOPHEN 325 MG TAB PO PRN (02:30)
[2024-06-25] MEDS ORDERED: LAbetaLOL 20MG SYG IV PRN (02:30)
[2024-06-25] MEDS ORDERED: hydrALAZine 20MG/ML VIAL IV PRN (02:30)
[2024-06-25] MEDS ORDERED: acetaMINOPHEN 650 MG SUPPOSITORY RC PRN (02:30)
[2024-06-25] MEDS: ALBUTEROL 0.083% 2.5 MG/3 ML INH IH PRN (03:10)
[2024-06-25 03:11] VITALS: PULSE 77; RESP 17; O2SAT 97
[2024-06-25] MEDS: LACTATED RINGERS 1000ML 1,000 ML IV SCH (03:26)
--- NOTE | 2024-06-25 07:03 | NUR ---
REPORT GIVEN TO ANAIS SOSA
[2024-06-25] MEDS: INSULIN humuLIN R 100 UNIT/ML 3ML SQ SCH (07:30)
--- NOTE | 2024-06-25 08:15 | HMCIMG ---
CT ABDOMEN/PELVIS W/O CONTRAST REASON: INTRACTABLE NAUSEA VOMITING FOR ONE WEEK. HISTORY OF DIVERTICULITIS COMPARISON: None. FINDINGS: Lung bases are clear. There are no focal liver lesions. There are normal-appearing kidneys.. Spleen and pancreas appear unremarkable. The gallbladder appears normal as well. There is moderate to marked distention of the proximal jejunum with a transition zone to normal caliber. There is some focal wall thickening at the transition zone. Consistent with mechanical obstruction, etiology not identified. Mid and distal small bowel loops appear normal including the terminal ileum. Colon appears unremarkable. Bowel loops appear otherwise unremarkable. This includes normal appearance of the appendix There is no evidence of free fluid or intraperitoneal air. There are no focal fluid collections. Aorta and retroperitoneum appear normal as do pelvic soft tissue structures. The anterior abdominal wall is intact. Osseous structures appear unremarkable. IMPRESSION: 1. Small bowel obstruction at the proximal jejunal level, etiology not identified. 2. No other acute finding. CT was performed with one or more following dose reduction techniques: automated exposure control, adjustment of the mA and kv according to patient's size, or use of a iterative reconstruction technique.
--- NOTE | 2024-06-25 08:31 | HP ---
[facility] HISTORY & PHYSICAL Date Patient Seen: Jun 25, 2024 Time of Visit: 08:15 Supervising Physician: [Dr. Gonzalez] Primary Care Physician: [Dr. 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 Per ED report patient had a near syncopal episode as she stood up from her chair to answer the door while watching TV in her home. As she open the door she felt as if she was going to faint and her neighbor caught her before she could fall. She was discharged from this facility about two months ago on 04/27 where she was treated for severe sepsis secondary to colitis. Her labs on admission were remarkable for markedly elevated creatinine of 1.7, up from her baseline of 0.7 about two months prior. Her blood sugar was 153, troponin 11. CBC and BMP were otherwise unremarkable. She was treated with 1 L NS bolus in the ED. She states she lost consciousness for sometime but did not hit her head or fall down. She denies any cardiac hx or atrial fibrillation but does not have her medications with her. Her EKG showed normal sinus rhythm with a heart rate of 89 and no ectopy per report. She had an echocardiogram on 04/10/2024 which revealed an EF of 60-65%. Patient admits feeling nauseous now. She reported one episode of non-bloody vomit yesterday prior to her episode of syncope. No vomiting. No pain at rest but has epigastric tenderness with deep palpation on exam. She previously had an incomplete bowel obstruction. She is a poor historian.] PAST MEDICAL HX: see above PAST SURGICAL HX: noncontributory SOCIAL HISTORY: No tobacco, ETOH, or illicit drug use Coded Allergies: No Known Drug Allergies (Unverified Allergy, Unknown, 04/06/24) REVIEW OF SYSTEMS: 12 point ROS reviewed with patient. Pertinent positives mentioned above. Otherwise negative. PHYSICAL EXAM: GENERAL: alert, weak, awake oriented x 3 HEENT: EOMI, Sclera non icteric, moist mucosa NECK: Supple, no JVD, trachea midline LUNGS: Clear breath sounds bilaterally. No wheezes HEART: Regular rate and rhythm. Normal S1 and S2, without murmurs ABD: Abdomen soft, epigastric tenderness, Bowel sounds present EXT: No clubbing cyanosis or edema NEURO: Alert and oriented to person, follows commands Vital Signs (last 8hr) Date Time Temp Pulse Resp B/P (MAP) Pulse Ox O2 Delivery O2 Flow Rate FiO2 06/25/24 05:41 98.8 74 16 111/57 97 Room Air* 0 21 06/25/24 03:34 98.4 77 16 102/50 99 Room Air* 0 21 06/25/24 03:11 77 17 N/A Room Air 21 06/25/24 03:11 77 17 06/25/24 01:00 98.4 82 16 104/52 97 Room Air* 0 21 LABS: Hematology Labs: Test 06/24/24 21:13 Range/Units White Blood Count 9.1 4.8-10.8 K/uL Red Blood Count 4.73 4.00-5.50 MIL/uL Hemoglobin 12.3 12.0-16.0 g/dL Hematocrit 38.3 36-48 % Mean Corpuscular Volume 81.0 79-99 fL Mean Corpuscular Hemoglobin 26.0 L 27.0-33.0 pg Mean Corpuscular Hemoglobin Concent 32.1 32.0-36.0 g/dL Red Cell Distribution Width 15.1 11.0-15.5 % Platelet Count 356 130-400 K/uL Mean Platelet Volume 9.9 7.5-10.5 fL Immature Granulocyte % (Auto) 0.8 0-1 % Neutrophils (%) (Auto) 40.2 40.0-77.0 % Lymphocytes (%) (Auto) 48.3 21.0-51.0 % Monocytes (%) (Auto) 10.0 3.0-13.0 % Eosinophils (%) (Auto) 0.3 0.0-8.0 % Basophils (%) (Auto) 0.4 0.0-5.0 % Neutrophils # (Auto) 3.6 1.8-7.7 K/uL Lymphocytes # (Auto) 4.4 1.0-4.8 K/uL Monocytes # (Auto) 0.9 0.1-1.0 K/uL Eosinophils # (Auto) 0.03 0.00-0.70 K/uL Basophils # (Auto) 0.04 0.00-0.20 K/uL Absolute Immature Granulocyte (auto 0.07 0-1 K/uL Nucleated Red Blood Cells 0.0 0.0-0.19 % Chemistry Labs: Test 06/24/24 21:13 Range/Units Sodium Level 132 L 136-145 mmol/L Potassium Level 4.0 3.5-5.1 mmol/L Chloride Level 91 L 101-111 mmol/L Carbon Dioxide Level 34 H 21-32 mmol/L Blood Urea Nitrogen 24 H 7-18 mg/dL Creatinine 1.7 H 0.5-1.0 mg/dL Glomerular Filtration Rate Calc 32 >90 mL/min Random Glucose 153 H 70-105 mg/dL Total Calcium 9.6 8.5-10.1 mg/dL Troponin I High Sensitivity 11 4-50 ng/L DIAGNOSTICS / RADIOLOGY RESULTS: [pending imaging studies] PLAN NEURO: Minimize central acting medications as possible. Maintain fall precautions, adequate lighting during the day PULMONARY: Supplemental 02 as needed. Maintain aspiration precautions at all times CARDIOVASCULAR: Follow hemodynamics. Vital signs per facility protocol GI & NUTRITION: Continue with nutritional support. Continue stool softeners and laxatives as needed. KIDNEYS & ELECTROLYTES: Strict monitoring of intake, output and overall fluid balance. Avoid nephrotoxic medications to the extent possible. Medications to be dosed according to renal function. Monitor electrolytes and replace as needed ENDOCRINE: Maintain blood glucose between 100-180 at all times. Hypoglycemia protocol in place INFECTIOUS DISEASE: Trend temperature, WBC and procalcitonin level Follow cultures, deescalate antibiotics as soon as possible. Panculture if new onset fever ONCOLOGY/HEMATOLOGY/COAGULATION: Monitor for s/s of bleeding Monitor hemoglobin, coagulation studies as needed SKIN: Pressure ulcer prevention per facility protocol Specialty mattress ORTHO/REHAB: Continue PT/OT Prophylaxis: Continue GI and DVT prophylaxis Code Status: Full Resuscitation Disposition: TBD Other: Total patient care time exceeds 35 minutes excluding all procedures. MARCELLE ARRIAGA Jun 25, 2024 08:31
[2024-06-25] MEDS: metoCLOPRAmide 5 MG TABLET PO SCH (08:33)
[2024-06-25] MEDS: MAGNESIUM OXIDE 400 MG TABLET PO SCH (09:46)
[2024-06-25] MEDS: duloXETine HCL 30 MG CAP PO SCH (09:46)
[2024-06-25] MEDS: PANTOPrazole 40 MG TAB DR PO SCH (09:46)
--- NOTE | 2024-06-25 10:40 | HMCIMG ---
Exam: NONCONTRAST CT BRAIN REASON: near syncope. COMPARISON: None. TECHNIQUE: Images are obtained from vertex to the skull base. The exam was performed without IV contrast. FINDINGS: There is normal appearing brain parenchyma. There are no focal mass lesions. There is is no evidence of intracranial hemorrhage or acute stroke. Ventricles and sulci appear normal. Posterior fossa and brainstem structures are unremarkable. Paranasal sinuses and remaining extracranial soft tissues appear normal as well. IMPRESSION: 1. Normal noncontrast CT brain. CT was performed with one or more following dose reduction techniques: automated exposure control, adjustment of the mA and kv according to patient's size, or use of a iterative reconstruction technique.
--- NOTE | 2024-06-25 12:29 | HMCIMG ---
US CAROTID DUPLEX REASON: near syncope TECHNIQUE: Exam was performed using spectral analysis and color flow imaging. FINDINGS: Color flow Doppler ultrasound shows normal-appearing bifurcations. There is no anatomic evidence of significant focal narrowing. Flow velocities and velocity ratios appear normal throughout. There is antegrade flow in both vertebral arteries. RIGHT CAROTID: CCA: 58 cm/sec ICA: 61 cm/sec Ratio: ICA/CCA: 0.9 ECA: 78 cm/sec Vertebral artery: 37 cm/sec LEFT CAROTID: CCA: 83 cm/sec ICA: 66 cm/sec Ratio: ICA/CCA: 1.2 ECA: 73 cm/sec Vertebral artery: 51 cm/sec IMPRESSION: Normal bilateral carotid Doppler ultrasound.
--- NOTE | 2024-06-25 13:51 | NUR ---
DCP: HOME Sw met with pt who lives by herself and remains independent of her ADLS, home management and meal prep. Pt states she drives very little, daughter drives pt to MD appts and as needed. Pt uses no DME or in home care services at this time. PCP is Margaret Pro and uses MICHELLE Burgos for rx. At this time, pt denies dc needs, states she is waiting for test results and possible dx for her issues. DCP is home Addendum: 06/25/24 at 1400 by YOSEPH MONTES DE OCA SS Amended: Links added.
[2024-06-25 17:51] VITALS: BP 120/81; PULSE 74; RESP 20; TEMP 97.6
[2024-06-25 20:00] VITALS: BP 126/64; PULSE 73; RESP 20; TEMP 98.6
[2024-06-25] MEDS: ondanSETRON 4MG INJ IVP PRN (20:02)
[2024-06-25] MEDS: atorVAStatin 20 MG TABLET PO SCH (20:02)
[2024-06-25 20:42] LABS: APPEARANCE,URINE CLOUDY (CLEAR); BILIRUBIN,URINE NEGATIVE (NEGATIVE); COLOR,URINE YELLOW (YELLOW); GLUCOSE, URINE (UA) NEGATIVE (NEGATIVE); KETONES,URINE 10 mg/dL (NEGATIVE); LEUKOCYTE ESTERASE ,URINE 75 Leu/uL (NEGATIVE); NITRATE,URINE NEGATIVE (NEGATIVE); OCCULT BLOOD,URINE NEGATIVE (NEGATIVE); PROTEIN,URINE 20 mg/dL (NEGATIVE); UROBILINOGEN,URINE 0.2 mg/dL (0.2-1.0)
[2024-06-25 20:43] LABS: ADD UA MICROSCOPIC YES
[2024-06-25 20:45] LABS: BACTERIA,URINE RARE /HPF (None Seen); MUCUS,URINE RARE LPF (None Seen); OTHER CASTS, URINE 1 /LPF (None Seen); RBC,URINE 0-1 /HPF (0-1); SQUAMOUS EPITHELIAL CELL,UR RARE /HPF (0-2)
[2024-06-26] VITALS (9 sets, daily range): BP systolic 108–140; BP diastolic 47–72; PULSE 64–78; RESP 16–20; TEMP 97.7–98.8; O2SAT 96–100
[2024-06-26 05:37] LABS: BASOPHILS # (AUTO) 0.02 K/uL (0.00-0.20); BASOPHILS % (AUTO) 0.3 % (0.0-5.0); EOSINOPHILS # (AUTO) 0.14 K/uL (0.00-0.70); EOSINOPHILS % (AUTO) 2.1 % (0.0-8.0); HEMATOCRIT 31.5 % (36-48); IMMATURE GRANULOCYTE ABSOLUTE 0.03 K/uL (0-1); LYMPHOCYTES # (AUTO) 3.6 K/uL (1.0-4.8); LYMPHOCYTES % (AUTO) 54.2 % (21.0-51.0); MEAN CORPUSCULAR HEMOGLOBIN 26.1 pg (27.0-33.0); MEAN CORPUSCULAR HGB CONC 32.1 g/dL (32.0-36.0); MEAN CORPUSCULAR VOLUME 81.4 fL (79-99); MONOCYTES # (AUTO) 0.5 K/uL (0.1-1.0); MONOCYTES % (AUTO) 7.3 % (3.0-13.0); NEUTROPHILS # (AUTO) 2.4 K/uL (1.8-7.7); NEUTROPHILS % (AUTO) 35.6 % (40.0-77.0); PLATELET COUNT (AUTO) 278 K/uL (130-400); RED BLOOD CELL COUNT(AUTO) 3.87 MIL/uL (4.00-5.50); RED CELL DISTRIBUTION WIDTH 15.1 % (11.0-15.5); WHITE BLOOD COUNT (AUTO) 6.6 K/uL (4.8-10.8)
--- NOTE | 2024-06-26 05:47 | PN ---
[facility] PROGRESS NOTE Date Patient Seen: Jun 26, 2024 Time of Visit: 05:37 Supervising Physician: [Dr. Bernal] Primary Care Physician: [Dr. Daisy Pro] Outpatient Specialists: [ ] Inpatient Consults: [ ] PROBLEM LIST: Small bowel obstruction Syncope, POA Possible vasovagal Acute renal failure, creatinine 1.7 on admission baseline 0.7 on 04/26/24 likely prerenal d/t hypovolemia in vomiting Chronic diastolic heart failure, EF of 60-65% per echo 04/10/2024 Right pleural effusion Hypothyroidism Diabetes mellitus Hypertension Plan: General surgery consult, follow up with recommendation NGT placed IV fluids with LR @125ml Order urine culture Start levothyroxine IV Order Cartoid doppler Orthostatic vital signs pending Continue reglan TID PRN Continue protonix Order UA Echo completed on 04/10/[address] abd/pelvis Continue IV fluids until completed Monitor digital marketing project manager and replace electrolytes BMP, Mg2+ in AM Resume home meds, hold lisinopril and metformin INTERVAL HISTORY: [Patient WBC remains in normal limits. She has elevated TSH at 10. UA is positive for leukocyte esterase. Pending repeat labs today. She is hemodynamically stable, no fever; on room air. Findings on CT abdomen are consistent with small bowel obstruction at the proximal jejunal level. Urine c ulture is growing GNR. Patient continues on rocephin.] REVIEW OF SYSTEMS: 12 point ROS reviewed with patient. Pertinent positives mentioned above. Otherwise negative. PHYSICAL EXAM: GENERAL: alert, weak, awake oriented x 3 HEENT: EOMI, Sclera non icteric, moist mucosa NECK: Supple, no JVD, trachea midline LUNGS: Clear breath sounds bilaterally. No wheezes HEART: Regular rate and rhythm. Normal S1 and S2, without murmurs ABD: Abdomen soft, epigastric tenderness, Bowel sounds present EXT: No clubbing cyanosis or edema NEURO: Alert and oriented to person, follows commands Vital Signs (last 8hr) Date Time Temp Pulse Resp B/P (MAP) Pulse Ox O2 Delivery O2 Flow Rate FiO2 06/26/24 04:00 98.1 66 20 115/47 99 Room Air 06/26/24 00:00 98.8 77 20 116/58 96 Room Air LABS: Hematology Labs: Test 06/26/24 05:15 Range/Units White Blood Count 6.6 4.8-10.8 K/uL Red Blood Count 3.87 L 4.00-5.50 MIL/uL Hemoglobin 10.1 L 12.0-16.0 g/dL Hematocrit 31.5 L 36-48 % Mean Corpuscular Volume 81.4 79-99 fL Mean Corpuscular Hemoglobin 26.1 L 27.0-33.0 pg Mean Corpuscular Hemoglobin Concent 32.1 32.0-36.0 g/dL Red Cell Distribution Width 15.1 11.0-15.5 % Platelet Count 278 130-400 K/uL Mean Platelet Volume 10.0 7.5-10.5 fL Immature Granulocyte % (Auto) 0.5 0-1 % Neutrophils (%) (Auto) 35.6 L 40.0-77.0 % Lymphocytes (%) (Auto) 54.2 H 21.0-51.0 % Monocytes (%) (Auto) 7.3 3.0-13.0 % Eosinophils (%) (Auto) 2.1 0.0-8.0 % Basophils (%) (Auto) 0.3 0.0-5.0 % Neutrophils # (Auto) 2.4 1.8-7.7 K/uL Lymphocytes # (Auto) 3.6 1.0-4.8 K/uL Monocytes # (Auto) 0.5 0.1-1.0 K/uL Eosinophils # (Auto) 0.14 0.00-0.70 K/uL Basophils # (Auto) 0.02 0.00-0.20 K/uL Absolute Immature Granulocyte (auto 0.03 0-1 K/uL Nucleated Red Blood Cells 0.0 0.0-0.19 % Chemistry Labs: Test 06/26/24 05:31 06/25/24 12:24 06/24/24 21:13 Range/Units Whole Blood Glucose 88 70-110 MG/DL Thyroid Stimulating Hormone (TSH) 10.97 #H 0.36-3.74 uIU/mL Sodium Level 132 L 136-145 mmol/L Potassium Level 4.0 3.5-5.1 mmol/L Chloride Level 91 L 101-111 mmol/L Carbon Dioxide Level 34 H 21-32 mmol/L Blood Urea Nitrogen 24 H 7-18 mg/dL Creatinine 1.7 H 0.5-1.0 mg/dL Glomerular Filtration Rate Calc 32 >90 mL/min Random Glucose 153 H 70-105 mg/dL Total Calcium 9.6 8.5-10.1 mg/dL Troponin I High Sensitivity 11 4-50 ng/L DIAGNOSTICS / RADIOLOGY RESULTS: CT ABDOMEN/PELVIS W/O CONTRAST REASON: INTRACTABLE NAUSEA VOMITING FOR ONE WEEK. HISTORY OF DIVERTICULITIS COMPARISON: None. FINDINGS: Lung bases are clear. There are no focal liver lesions. There are normal-appearing kidneys.. Spleen and pancreas appear unremarkable. The gallbladder appears normal as well. There is moderate to marked distention of the proximal jejunum with a transition zone to normal caliber. There is some focal wall thickening at the transition zone. Consistent with mechanical obstruction, etiology not identified. Mid and distal small bowel loops appear normal including the terminal ileum. Colon appears unremarkable. Bowel loops appear otherwise unremarkable. This includes normal appearance of the appendix There is no evidence of free fluid or intraperitoneal air. There are no focal fluid collections. Aorta and retroperitoneum appear normal as do pelvic soft tissue structures. The anterior abdominal wall is intact. Osseous structures appear unremarkable. IMPRESSION: 1. Small bowel obstruction at the proximal jejunal level, etiology not identified. 2. No other acute finding. PLAN NEURO: Minimize central acting medications as possible. Maintain fall precautions, adequate lighting during the day PULMONARY: Supplemental 02 as needed. Maintain aspiration precautions at all times CARDIOVASCULAR: Follow hemodynamics. Vital signs per facility protocol GI & NUTRITION: Continue with nutritional support. Continue stool softeners and laxatives as needed. KIDNEYS & ELECTROLYTES: Strict monitoring of intake, output and overall fluid balance. Avoid nephrotoxic medications to the extent possible. Medications to be dosed according to renal function. Monitor electrolytes and replace as needed ENDOCRINE: Maintain blood glucose between 100-180 at all times. Hypoglycemia protocol in place INFECTIOUS DISEASE: Trend temperature, WBC and procalcitonin level Follow cultures, deescalate antibiotics as soon as possible. Panculture if new onset fever ONCOLOGY/HEMATOLOGY/COAGULATION: Monitor for s/s of bleeding Monitor hemoglobin, coagulation studies as needed SKIN: Pressure ulcer prevention per facility protocol Specialty mattress ORTHO/REHAB: Continue PT/OT Prophylaxis: Continue GI and DVT prophylaxis Code Status: Full Resuscitation Disposition: TBD Other: Total patient care time exceeds 52 minutes excluding all procedures. MARCELLE ARRIAGA Jun 26, 2024 05:47
[2024-06-26 05:51] LABS: CREATININE 0.8 mg/dL (0.5-1.0); MAGNESIUM 1.9 mg/dL (1.80-2.40); POTASSIUM 3.9 mmol/L (3.5-5.1)
[2024-06-26] MEDS: CEFTRIAXONE 2GM VIAL IVPB SCH (05:57)
[2024-06-26] MEDS: levoTHYROxine VIAL 100MCG IV SCH (06:26)
[2024-06-26] MEDS ORDERED: levoTHYROxine 88 MCG TABLET PO SCH (06:30)
--- NOTE | 2024-06-26 06:52 | NUR ---
MD ROUNDS DR. RAMIREZ AT BEDSIDE, SPOKE WITH PATIENT REGARDING PLAN OF CARE RECOMMENDS CONSERVATIVE MANAGEMENT AT THIS TIME WITH IV HYDRATION AND NGT AT LOW INTERMITTENT SUCTION FOR 2 DAYS AND TO REASSESS. PATIENT REQUESTING TO SHOWER PRIOR TO NGT INSERTION.
--- NOTE | 2024-06-26 07:03 | CONS ---
CONSULTATION NOTE Date of Service: Jun 26, 2024 Reason for Consultation: [ Abdominal pain ] Requesting Physician: [ Hospitalist ] HISTORY OF PRESENT ILLNESS: [ Patient has been having abdominal pain for about two months. Patient describes the pain as initially starting up in the upper abdomen then migraine of the lower abdomen. The patient also admits to some emesis. Pain got signi ficant enough patient actually had what appears to be a vasovagal event and was brought into the emergency room. The CT scan was done on arrival to emergency room. I personally reviewed the CT scan. The breasts be some dilation of the stomach as well as some dilation of the proximal jejunum with a what appears to be a narrowing in the proximal to mid jejunum. There does not appear to be any signs of free air. Since patient's admission to the hospital she indicates that she had a liquidy bowel movement yesterday. Her pain also has improved. Prior to onset of symptoms patient was tolerating a regular diet, having regular bowel function. Patient denies any melena, hematochezia, hematuria. ] REVIEW OF SYSTEMS CONSTITUTIONAL: Denies fever, chills, or fatigue. HEAD/FACE: No signs of trauma. EENT: Denies eye pain, blurred vision, double vision, or light sensitivity. RESPIRATORY: Denies shortness of breath, cough, wheezing CARDIOVASCULAR: Denies chest pain, palpitation, syncope GASTROINTESTINAL/ABDOMINAL: Abdominal pain for about two months GENITOURINARY: Denies dysuria or hematuria. MUSCULOSKELETAL: Denies joint pain, tenderness, or trauma. INTEGUMENTARY: Denies rash or itchiness NEUROLOGICAL/PSYCH: Denies anxiety, depression, heat or cold intolerance. PAST MEDICAL HISTORY: [Hypothyroidism Diabetes mellitus Hypertension ] PAST SURGICAL HISTORY: [Patient denies ] PAST SOCIAL HISTORY: [ Patient denies any illicit drug use] FAMILY HISTORY: [ Noncontributory ] Coded Allergies: No Known Drug Allergies (Unverified Allergy, Unknown, 04/06/24) PHYSICAL EXAM PHYSICAL EXAM EYES: Sclera white HENT: Oral nasal mucosa pink and moist NECK: Supple, . LUNGS: Unlabored CARDIOVASCULAR: Regular rate and rhythm ABDOMEN: Abdomen is soft but slightly protuberant. Some tenderness in the left upper quadrant however no rebound. No peritoneal signs. CENTRAL NERVOUS SYSTEM: Awake, alert, oriented x3 SKIN: No rashes, no swelling. LYMPHATICS: No peripheral lymphadenopathy MUSCULOSKELETAL: Motor and sensory function grossly intact EXTREMITIES: No cyanosis or clubbing BACK: No deformity, no pressure ulcer. GENITOURINARY: No CVA tenderness Vital Sign (Last 24 Hours) 06/25/24 06/26/24 20:00 04:00 Temp 98.1 Pulse 66 Resp 20 B/P (MAP) 115/47 Pulse Ox 99 O2 Delivery Room Air O2 Flow Rate 0 FiO2 21 LABS: Laboratory: Test 06/26/24 05:31 06/26/24 05:15 06/25/24 20:30 06/25/24 12:24 Range/Units Whole Blood Glucose 88 70-110 MG/DL White Blood Count 6.6 4.8-10.8 K/uL Red Blood Count 3.87 L 4.00-5.50 MIL/uL Hemoglobin 10.1 L 12.0-16.0 g/dL Hematocrit 31.5 L 36-48 % Mean Corpuscular Volume 81.4 79-99 fL Mean Corpuscular Hemoglobin 26.1 L 27.0-33.0 pg Mean Corpuscular Hemoglobin Concent 32.1 32.0-36.0 g/dL Red Cell Distribution Width 15.1 11.0-15.5 % Platelet Count 278 130-400 K/uL Mean Platelet Volume 10.0 7.5-10.5 fL Immature Granulocyte % (Auto) 0.5 0-1 % Neutrophils (%) (Auto) 35.6 L 40.0-77.0 % Lymphocytes (%) (Auto) 54.2 H 21.0-51.0 % Monocytes (%) (Auto) 7.3 3.0-13.0 % Eosinophils (%) (Auto) 2.1 0.0-8.0 % Basophils (%) (Auto) 0.3 0.0-5.0 % Neutrophils # (Auto) 2.4 1.8-7.7 K/uL Lymphocytes # (Auto) 3.6 1.0-4.8 K/uL Monocytes # (Auto) 0.5 0.1-1.0 K/uL Eosinophils # (Auto) 0.14 0.00-0.70 K/uL Basophils # (Auto) 0.02 0.00-0.20 K/uL Absolute Immature Granulocyte (auto 0.03 0-1 K/uL Nucleated Red Blood Cells 0.0 0.0-0.19 % Sodium Level 141 136-145 mmol/L Potassium Level 3.9 3.5-5.1 mmol/L Chloride Level 105 101-111 mmol/L Carbon Dioxide Level 32 21-32 mmol/L Blood Urea Nitrogen 9 7-18 mg/dL Creatinine 0.8 0.5-1.0 mg/dL Glomerular Filtration Rate Calc 79 >90 mL/min Random Glucose 88 70-105 mg/dL Total Calcium 8.6 8.5-10.1 mg/dL Magnesium Level 1.90 1.80-2.40 mg/dL Urine Color YELLOW YELLOW Urine Appearance CLOUDY H CLEAR Urine pH 5.0 5.0-8.0 Urine Specific [place] 1.020 1.001-1.031 Urine Protein 20 H NEGATIVE mg/dL Urine Glucose (UA) NEGATIVE NEGATIVE mg/dL Urine Ketones 10 H NEGATIVE mg/dL Urine Occult Blood NEGATIVE NEGATIVE Urine Nitrate NEGATIVE NEGATIVE Urine Bilirubin NEGATIVE NEGATIVE mg/dL Urine Urobilinogen 0.2 0.2-1.0 mg/dL Urine Leukocyte Esterase 75 H NEGATIVE Sathish/uL Urine RBC 0-1 0-1 /HPF Urine WBC 11-25 H 0-1 /HPF Urine Squamous Epithelial Cells RARE 0-2 /HPF Urine Bacteria RARE None Seen /HPF Urine Other Casts 1 None Seen /LPF Thyroid Stimulating Hormone (TSH) 10.97 #H 0.36-3.74 uIU/mL Test 06/24/24 21:13 Range/Units Troponin I High Sensitivity 11 4-50 ng/L DIAGNOSTICS / RADIOLOGY: [ ] ASSESSMENT: [ Possible partial bowel obstruction. ] PLAN: [ Plan NG tube, NPO, IV fluids. May have to repeat the CT scan with oral contrast if there no resolution. Patient may need an exploratory laparoscopy. Risks associated with the procedure not limited to infection, bleeding, injury to surrounding structures has been explained to patient and she indicates she understands.] TIANNA RAMIREZ MD Jun 26, 2024 07:03
--- NOTE | 2024-06-26 13:00 | NUR ---
NG TUBE INSERTON NG TUBE PLACED ON LEFT NARE ON LOW INTERMITTENT SUCTION WITH HELP OF KHRIS RN CONFIRMED PLACEMENT VIA AIR BOLUS PATIENT TOLERATED WELL, PATIENT RESTING IN BED, CALL LIGHT IN REACH
--- NOTE | 2024-06-26 20:45 | NUR ---
ASSESS SHIFT ASSESSMENT DONE, PLEASE REFER TO CHART. PT DENIES ANY PAINS AT THIS TIME. NO COMPLAINTS VERBALIZED. KEPT RESTED AND COMFORTABLE IN BED WITH HOB ELEVATED. KEPT NPO AND NGT TO LIS. CALL LIGHT WITHIN REACH.
[2024-06-27] VITALS (9 sets, daily range): BP systolic 124–158; BP diastolic 57–85; PULSE 67–103; RESP 16–18; TEMP 97.5–98.4; O2SAT 95–98
[2024-06-27 04:27] LABS: MEAN CORPUSCULAR HEMOGLOBIN 25.8 pg (27.0-33.0); MEAN CORPUSCULAR HGB CONC 31.7 g/dL (32.0-36.0); MEAN CORPUSCULAR VOLUME 81.5 fL (79-99); RED BLOOD CELL COUNT(AUTO) 3.68 MIL/uL (4.00-5.50); RED CELL DISTRIBUTION WIDTH 15.1 % (11.0-15.5); WHITE BLOOD COUNT (AUTO) 6.3 K/uL (4.8-10.8)
--- NOTE | 2024-06-27 05:15 | NUR ---
MEDS PT RESTING WELL IN BED. NO CONCERNS VERBALIZED. NO DISTRESS NOTED. DUE MEDS ADMINISTERED, TOLERATED WELL. KEPT COMFORTABLE. KEPT NPO. FOR MORE CARE.
[2024-06-27] MEDS ORDERED: DIATR MEGLU/DIATRIZOATE SODIUM 30 ML BOTTLE ONE (09:50)
--- NOTE | 2024-06-27 11:47 | PN ---
PROGRESS NOTE Date of Service: Jun 27, 2024 Time of Service: 11:46 SUBJECTIVE: [ Patient had NG tube placed. NG tube output is minimal. Patient denies any pain. Patient does indicate that she had some flatus but no bowel movements. ] REVIEW OF SYSTEMS PHYSICAL EXAM Awake, alert, oriented x3 Unlabored Regular rate and rhythm Abdomen soft, nontender, nondistended Vital Signs (last 8hr) Date Time Temp Pulse Resp B/P (MAP) Pulse Ox O2 Delivery O2 Flow Rate FiO2 06/27/24 08:00 97.9 72 16 124/68 95 Room Air 06/27/24 07:04 89 18 N/A Room Air 06/27/24 04:00 98.4 80 18 143/57 96 Room Air LABS: Laboratory: Test 06/27/24 11:29 06/27/24 04:25 06/26/24 05:15 06/25/24 20:30 Range/Units Whole Blood Glucose 76 70-110 MG/DL White Blood Count 6.3 4.8-10.8 K/uL Red Blood Count 3.68 L 4.00-5.50 MIL/uL Hemoglobin 9.5 L 12.0-16.0 g/dL Hematocrit 30.0 L 36-48 % Mean Corpuscular Volume 81.5 79-99 fL Mean Corpuscular Hemoglobin 25.8 L 27.0-33.0 pg Mean Corpuscular Hemoglobin Concent 31.7 L 32.0-36.0 g/dL Red Cell Distribution Width 15.1 11.0-15.5 % Platelet Count 264 130-400 K/uL Mean Platelet Volume 9.6 7.5-10.5 fL Nucleated Red Blood Cells 0.0 0.0-0.19 % Lactic Acid Level 1.1 0.8-2.5 mmol/L Immature Granulocyte % (Auto) 0.5 0-1 % Neutrophils (%) (Auto) 35.6 L 40.0-77.0 % Lymphocytes (%) (Auto) 54.2 H 21.0-51.0 % Monocytes (%) (Auto) 7.3 3.0-13.0 % Eosinophils (%) (Auto) 2.1 0.0-8.0 % Basophils (%) (Auto) 0.3 0.0-5.0 % Neutrophils # (Auto) 2.4 1.8-7.7 K/uL Lymphocytes # (Auto) 3.6 1.0-4.8 K/uL Monocytes # (Auto) 0.5 0.1-1.0 K/uL Eosinophils # (Auto) 0.14 0.00-0.70 K/uL Basophils # (Auto) 0.02 0.00-0.20 K/uL Absolute Immature Granulocyte (auto 0.03 0-1 K/uL Sodium Level 141 136-145 mmol/L Potassium Level 3.9 3.5-5.1 mmol/L Chloride Level 105 101-111 mmol/L Carbon Dioxide Level 32 21-32 mmol/L Blood Urea Nitrogen 9 7-18 mg/dL Creatinine 0.8 0.5-1.0 mg/dL Glomerular Filtration Rate Calc 79 >90 mL/min Random Glucose 88 70-105 mg/dL Total Calcium 8.6 8.5-10.1 mg/dL Magnesium Level 1.90 1.80-2.40 mg/dL Urine Color YELLOW YELLOW Urine Appearance CLOUDY H CLEAR Urine pH 5.0 5.0-8.0 Urine Specific Darby 1.020 1.001-1.031 Urine Protein 20 H NEGATIVE mg/dL Urine Glucose (UA) NEGATIVE NEGATIVE mg/dL Urine Ketones 10 H NEGATIVE mg/dL Urine Occult Blood NEGATIVE NEGATIVE Urine Nitrate NEGATIVE NEGATIVE Urine Bilirubin NEGATIVE NEGATIVE mg/dL Urine Urobilinogen 0.2 0.2-1.0 mg/dL Urine Leukocyte Esterase 75 H NEGATIVE Sathish/uL Urine RBC 0-1 0-1 /HPF Urine WBC 11-25 H 0-1 /HPF Urine Squamous Epithelial Cells RARE 0-2 /HPF Urine Bacteria RARE None Seen /HPF Urine Other Casts 1 None Seen /LPF Test 06/25/24 12:24 Range/Units Thyroid Stimulating Hormone (TSH) 10.97 #H 0.36-3.74 uIU/mL DIAGNOSTICS / RADIOLOGY: [ ] ASSESSMENT: [ Possible partial bowel obstruction. ] PLAN: [ We will continue NG tube for now. Continue IV fluids. Can continue NPO. Repeat CT scan with oral contrast. The patient is still has signs of obstruction then we will consider a exploratory laparoscopy versus exploratory laparotomy..] TIANNA RAMIREZ MD Jun 27, 2024 11:47
--- NOTE | 2024-06-27 13:28 | PN ---
[facility] PROGRESS NOTE Date Patient Seen: Jun 27, 2024 Time of Visit: 13:13 Supervising Physician: [Dr. Bernal] Primary Care Physician: [Dr. Daisy Pro] Outpatient Specialists: [ ] Inpatient Consults: [Dr. Craven] PROBLEM LIST: Small bowel obstruction Syncope, POA Possible vasovagal Acute renal failure, creatinine 1.7 on admission baseline 0.7 on 04/26/24 likely prerenal d/t hypovolemia in vomiting Chronic diastolic heart failure, EF of 60-65% per echo 04/10/2024 Right pleural effusion Hypothyroidism Diabetes mellitus Hypertension Plan: Pending repeat CT abdomen with contrast NGT placed IV fluids with LR @125ml Stop rocephin, start zosyn Continue levothyroxine IV X 3 days then switch to PO Order Cartoid doppler Orthostatic vital signs pending Continue reglan TID PRN Continue protonix Echo completed on 04/10/24 Continue IV fluids until completed Monitor harness tier and replace electrolytes BMP, Mg2+ in AM Resume home meds, hold lisinopril and metformin INTERVAL HISTORY: [Patient WBC remains in normal limits. She has elevated TSH at 10. UA is positive for leukocyte esterase. Pending repeat labs today. She is hemodynamically stable, no fever; on room air. Findings on CT abdomen are consistent with small bowel obstruction at the proximal jejunal level. Urine c ulture is growing GNR. Patient continues on rocephin.] 06/27 patient is evaluated at bedside. She has NG tube in place, no output overnight. Has a total of about 300 mL of bilious appearing fluid. Patient reports having a bowel movement just prior to me seeing her but was small. She is followed by General surgery with recommendation to repeat CT abdomen with contrast. Her urine cultures positive for ESBL E coli, we will adjust antibiotics as indicated. Lactic acid is 1.1. Her abdomen is non distended, has pain with palpation to epigastric region. REVIEW OF SYSTEMS: 12 point ROS reviewed with patient. Pertinent positives mentioned above. Otherwise negative. PHYSICAL EXAM: GENERAL: alert, weak, awake oriented x 3 HEENT: EOMI, Sclera non icteric, moist mucosa NECK: Supple, no JVD, trachea midline LUNGS: Clear breath sounds bilaterally. No wheezes HEART: Regular rate and rhythm. Normal S1 and S2, without murmurs ABD: Abdomen soft, epigastric tenderness, Bowel sounds present EXT: No clubbing cyanosis or edema NEURO: Alert and oriented to person, follows commands Vital Signs (last 8hr) Date Time Temp Pulse Resp B/P (MAP) Pulse Ox O2 Delivery O2 Flow Rate FiO2 06/27/24 11:52 97.5 67 16 158/78 97 Room Air 21 06/27/24 08:00 97.9 72 16 124/68 95 Room Air 21 06/27/24 07:04 89 18 N/A Room Air 21 LABS: Hematology Labs: Test 06/27/24 04:25 06/26/24 05:15 Range/Units White Blood Count 6.3 4.8-10.8 K/uL Red Blood Count 3.68 L 4.00-5.50 MIL/uL Hemoglobin 9.5 L 12.0-16.0 g/dL Hematocrit 30.0 L 36-48 % Mean Corpuscular Volume 81.5 79-99 fL Mean Corpuscular Hemoglobin 25.8 L 27.0-33.0 pg Mean Corpuscular Hemoglobin Concent 31.7 L 32.0-36.0 g/dL Red Cell Distribution Width 15.1 11.0-15.5 % Platelet Count 264 130-400 K/uL Mean Platelet Volume 9.6 7.5-10.5 fL Nucleated Red Blood Cells 0.0 0.0-0.19 % Immature Granulocyte % (Auto) 0.5 0-1 % Neutrophils (%) (Auto) 35.6 L 40.0-77.0 % Lymphocytes (%) (Auto) 54.2 H 21.0-51.0 % Monocytes (%) (Auto) 7.3 3.0-13.0 % Eosinophils (%) (Auto) 2.1 0.0-8.0 % Basophils (%) (Auto) 0.3 0.0-5.0 % Neutrophils # (Auto) 2.4 1.8-7.7 K/uL Lymphocytes # (Auto) 3.6 1.0-4.8 K/uL Monocytes # (Auto) 0.5 0.1-1.0 K/uL Eosinophils # (Auto) 0.14 0.00-0.70 K/uL Basophils # (Auto) 0.02 0.00-0.20 K/uL Absolute Immature Granulocyte (auto 0.03 0-1 K/uL Chemistry Labs: Test 06/27/24 11:29 06/27/24 04:25 06/26/24 05:15 Range/Units Whole Blood Glucose 76 70-110 MG/DL Lactic Acid Level 1.1 0.8-2.5 mmol/L Sodium Level 141 136-145 mmol/L Potassium Level 3.9 3.5-5.1 mmol/L Chloride Level 105 101-111 mmol/L Carbon Dioxide Level 32 21-32 mmol/L Blood Urea Nitrogen 9 7-18 mg/dL Creatinine 0.8 0.5-1.0 mg/dL Glomerular Filtration Rate Calc 79 >90 mL/min Random Glucose 88 70-105 mg/dL Total Calcium 8.6 8.5-10.1 mg/dL Magnesium Level 1.90 1.80-2.40 mg/dL DIAGNOSTICS / RADIOLOGY RESULTS: Pending CT abdomen with contrast PLAN NEURO: Minimize central acting medications as possible. Maintain fall precautions, adequate lighting during the day PULMONARY: Supplemental 02 as needed. Maintain aspiration precautions at all times CARDIOVASCULAR: Follow hemodynamics. Vital signs per facility protocol GI & NUTRITION: Continue with nutritional support. Continue stool softeners and laxatives as needed. KIDNEYS & ELECTROLYTES: Strict monitoring of intake, output and overall fluid balance. Avoid nephrotoxic medications to the extent possible. Medications to be dosed according to renal function. Monitor electrolytes and replace as needed ENDOCRINE: Maintain blood glucose between 100-180 at all times. Hypoglycemia protocol in place INFECTIOUS DISEASE: Trend temperature, WBC and procalcitonin level Follow cultures, deescalate antibiotics as soon as possible. Panculture if new onset fever ONCOLOGY/HEMATOLOGY/COAGULATION: Monitor for s/s of bleeding Monitor hemoglobin, coagulation studies as needed SKIN: Pressure ulcer prevention per facility protocol Specialty mattress ORTHO/REHAB: Continue PT/OT Prophylaxis: Continue GI and DVT prophylaxis Code Status: Full Resuscitation Disposition: TBD Other: Total patient care time exceeds 52 minutes excluding all procedures. MARCELLE ARRIAGA Jun 27, 2024 13:28
[2024-06-27] MEDS: ZOSYN 3.375GM +NS 50ML IVPB SCH (13:30)
--- NOTE | 2024-06-27 15:34 | HMCIMG ---
CT ABDOMEN/PELVIS W/O CONTRAST REASON: sbo COMPARISON: The 06/25/2024 Knee: Images are obtained from lung bases through the symphysis pubis following oral contrast. FINDINGS: Lung bases are clear. There is a 2 cm cyst medial segment left lobe of the liver. There are no other focal liver lesions.. There are normal-appearing kidneys.. Spleen and pancreas appear unremarkable. The gallbladder appears normal as well. An NG tube which passes through the stomach with tip present in the second portion of the duodenum. Oral contrast outlines the duodenum. The jejunal loop just past the ligament of Treitz remains markedly distended, measuring 4.8 cm in size. This distention persists for the first few jejunal loops, there is abrupt transition to normal caliber in the proximal jejunum. This appearance is unchanged compared with previous exam. There is contrast visible in the normal caliber small bowel loops. Contrast extends into the colon. Findings are consistent with a high-grade partial mechanical obstruction of the proximal jejunum, etiology not identified. The appendix appears unremarkable. There is no evidence of free fluid or intraperitoneal air. There are no focal fluid collections. Aorta and retroperitoneum appear normal as do pelvic soft tissue structures. The anterior abdominal wall is intact. Osseous structures appear unremarkable. IMPRESSION: 1. Findings consistent with high-grade obstruction of the proximal jejunum, location and appearance unchanged compared to prior study 06/25/2024. 2. The obstruction is partial, as there is oral contrast reaching normal caliber small bowel and extending to the colon. 3. Otherwise unremarkable CT abdomen and pelvis. CT was performed with one or more following dose reduction techniques: automated exposure control, adjustment of the mA and kv according to patient's size, or use of a iterative reconstruction technique.
--- NOTE | 2024-06-27 20:21 | NUR ---
QUESTIONS ON SURGERY PATIENT ALERT X4 DR. RAMIREZ CALLED ME AND EXPLAINED THAT PATIENT NEEDS TO GO FOR EXPLORATORY LAPAROSCOPY POSSIBLE OPEN LAPAROTOMY TOMORROW AT 1400 I EXPLAINED TO PATIENT AND SHE WANTED TO SPEAK TO DR PRIOR TO SIGNING CONSENT PATIENT RESTING IN BED, CALL LIGHT IN REACH
--- NOTE | 2024-06-27 20:35 | NUR ---
MEDS SHIFT ASSESSMENT DONE, PLEASE REFER TO CHART. DUE MEDS ADMINISTERED, TOLERATED WELL. KEPT NPO WITH NGT TO LIS. KEPT RESTED AND COMFORTABLE IN BED. CALL LIGHT WITHIN REACH.
[2024-06-28] VITALS (27 sets, daily range): BP systolic 116–155; BP diastolic 41–77; PULSE 53–89; RESP 16–19; TEMP 97.5–98.5; O2SAT 97–98
[2024-06-28 05:06] LABS: CREATININE 0.6 mg/dL (0.5-1.0); POTASSIUM 3.2 mmol/L (3.5-5.1)
--- NOTE | 2024-06-28 05:20 | NUR ---
RETAIL FIELD MERCHANDISER PT'S BLOOD SUGAR=56 PER LAB DRAW AND KCL=3.2. PT IS ASYMPTOMATIC AT THIS TIME. NO NOTED DISTRESS. PAGED RETAIL FIELD MERCHANDISER ARBORER FOR BENCHMARK VIA ANSWERING SERVICE AND RETAIL FIELD MERCHANDISER GUNNER CALLED BACK. REFERRED ABNORMAL LABS. NEW ORDERS RECEIVED, PLEASE REFER TO CPOE. WILL MEDICATE PT.
[2024-06-28] MEDS ORDERED: GLUCAGON 1MG KIT 1 MG ML IM PRN (05:30)
[2024-06-28] MEDS: INSULIN humuLIN R 100 UNIT/ML 3ML SQ SCH (06:00)
[2024-06-28] MEDS: PoTASSium chloRIDE 20MEQ/100ML 100 ML IV PRN (06:15)
[2024-06-28] MEDS: DEXTROSE 50%-WATER 50 ML DISP.SYRIN IV PRN (06:15)
[2024-06-28] MEDS ORDERED: INSULIN humuLIN R 100 UNIT/ML 3ML SQ SCH (07:30)
--- NOTE | 2024-06-28 09:20 | PN ---
[facility] PROGRESS NOTE Date Patient Seen: Jun 28, 2024 Time of Visit: 09:17 Supervising Physician: [Dr. Bernal] Primary Care Physician: [Dr. Daisy Pro] Outpatient Specialists: [ ] Inpatient Consults: [Dr. Craven] PROBLEM LIST: Small bowel obstruction Syncope, POA Possible vasovagal Acute renal failure, creatinine 1.7 on admission baseline 0.7 on 04/26/24 likely prerenal d/t hypovolemia in vomiting Chronic diastolic heart failure, EF of 60-65% per echo 04/10/2024 Right pleural effusion Hypothyroidism Diabetes mellitus Hypertension Plan: Pending exploratory laparoscopy NGT placed IV fluids with LR @125ml Stop rocephin, start zosyn Continue levothyroxine IV X 3 days then switch to PO Order Cartoid doppler Orthostatic vital signs pending Continue reglan TID PRN Continue protonix Echo completed on 04/10/24 Continue IV fluids until completed Monitor scale agent and replace electrolytes BMP, Mg2+ in AM Resume home meds, hold lisinopril and metformin INTERVAL HISTORY: [Patient WBC remains in normal limits. She has elevated TSH at 10. UA is positive for leukocyte esterase. Pending repeat labs today. She is hemodynamically stable, no fever; on room air. Findings on CT abdomen are consistent with small bowel obstruction at the proximal jejunal level. Urine culture is growing GNR. Patient continues on rocephin.] 06/27 patient is evaluated at bedside. She has NG tube in place, no output ove rnight. Has a total of about 300 mL of bilious appearing fluid. Patient reports having a bowel movement just prior to me seeing her but was small. She is followed by General surgery with recommendation to repeat CT abdomen with contrast. Her urine cultures positive for ESBL E coli, we will adjust antibiotics as indicated. Lactic acid is 1.1. Her abdomen is non distended, has pain with palpation to epigastric region. 06/[address] abdomen with contrast shows a high grade obstruction to proximal jejunum but is incomplete as there is contrast visible past the obstruction, per report. General surgery is recommending exploratory laparoscopy and patient agrees. REVIEW OF SYSTEMS: 12 point ROS reviewed with patient. Pertinent positives mentioned above. Otherwise negative. PHYSICAL EXAM: GENERAL: alert, weak, awake oriented x 3 HEENT: EOMI, Sclera non icteric, moist mucosa NECK: Supple, no JVD, trachea midline LUNGS: Clear breath sounds bilaterally. No wheezes HEART: Regular rate and rhythm. Normal S1 and S2, without murmurs ABD: Abdomen soft, epigastric tenderness, Bowel sounds present EXT: No clubbing cyanosis or edema NEURO: Alert and oriented to person, follows commands Vital Signs (last 8hr) Date Time Temp Pulse Resp B/P (MAP) Pulse Ox O2 Delivery O2 Flow Rate FiO2 06/28/24 08:46 98.2 72 18 140/77 97 Room Air 06/28/24 07:37 88 18 N/A Room Air 21 06/28/24 04:00 98.4 89 18 142/69 96 Room Air LABS: Hematology Labs: Test 06/27/24 04:25 Range/Units White Blood Count 6.3 4.8-10.8 K/uL Red Blood Count 3.68 L 4.00-5.50 MIL/uL Hemoglobin 9.5 L 12.0-16.0 g/dL Hematocrit 30.0 L 36-48 % Mean Corpuscular Volume 81.5 79-99 fL Mean Corpuscular Hemoglobin 25.8 L 27.0-33.0 pg Mean Corpuscular Hemoglobin Concent 31.7 L 32.0-36.0 g/dL Red Cell Distribution Width 15.1 11.0-15.5 % Platelet Count 264 130-400 K/uL Mean Platelet Volume 9.6 7.5-10.5 fL Nucleated Red Blood Cells 0.0 0.0-0.19 % Chemistry Labs: Test 06/28/24 07:11 06/28/24 04:22 06/27/24 04:25 Range/Units Whole Blood Glucose 191 #H 70-110 MG/DL Sodium Level 142 136-145 mmol/L Potassium Level 3.2 L 3.5-5.1 mmol/L Chloride Level 104 101-111 mmol/L Carbon Dioxide Level 26 21-32 mmol/L Blood Urea Nitrogen 3 L 7-18 mg/dL Creatinine 0.6 0.5-1.0 mg/dL Glomerular Filtration Rate Calc 96 >90 mL/min Random Glucose 56 L 70-105 mg/dL Total Calcium 8.4 L 8.5-10.1 mg/dL Magnesium Level 1.50 L 1.80-2.40 mg/dL Lactic Acid Level 1.1 0.8-2.5 mmol/L DIAGNOSTICS / RADIOLOGY RESULTS: CT ABDOMEN/PELVIS W/O CONTRAST REASON: sbo COMPARISON: The 06/25/2024 Knee: Images are obtained from lung bases through the symphysis pubis following oral contrast. FINDINGS: Lung bases are clear. There is a 2 cm cyst medial segment left lobe of the liver. There are no other focal liver lesions.. There are normal-appearing kidneys.. Spleen and pancreas appear unremarkable. The gallbladder appears normal as well. An NG tube which passes through the stomach with tip present in the second portion of the duodenum. Oral contrast outlines the duodenum. The jejunal loop just past the ligament of Treitz remains markedly distended, measuring 4.8 cm in size. This distention persists for the first few jejunal loops, there is abrupt transition to normal caliber in the proximal jejunum. This appearance is unchanged compared with previous exam. There is contrast visible in the normal caliber small bowel loops. Contrast extends into the colon. Findings are consistent with a high-grade partial mechanical obstruction of the proximal jejunum, etiology not identified. The appendix appears unremarkable. There is no evidence of free fluid or intraperitoneal air. There are no focal fluid collections. Aorta and retroperitoneum appear normal as do pelvic soft tissue structures. The anterior abdominal wall is intact. Osseous structures appear unremarkable. IMPRESSION: 1. Findings consistent with high-grade obstruction of the proximal jejunum, location and appearance unchanged compared to prior study 06/25/2024. 2. The obstruction is partial, as there is oral contrast reaching normal caliber small bowel and extending to the colon. 3. Otherwise unremarkable CT abdomen and pelvis. PLAN NEURO: Minimize central acting medications as possible. Maintain fall precautions, adequate lighting during the day PULMONARY: Supplemental 02 as needed. Maintain aspiration precautions at all times CARDIOVASCULAR: Follow hemodynamics. Vital signs per facility protocol GI & NUTRITION: Continue with nutritional support. Continue stool softeners and laxatives as needed. KIDNEYS & ELECTROLYTES: Strict monitoring of intake, output and overall fluid balance. Avoid nephrotoxic medications to the extent possible. Medications to be dosed according to renal function. Monitor electrolytes and replace as needed ENDOCRINE: Maintain blood glucose between 100-180 at all times. Hypoglycemia protocol in place INFECTIOUS DISEASE: Trend temperature, WBC and procalcitonin level Follow cultures, deescalate antibiotics as soon as possible. Panculture if new onset fever ONCOLOGY/HEMATOLOGY/COAGULATION: Monitor for s/s of bleeding Monitor hemoglobin, coagulation studies as needed SKIN: Pressure ulcer prevention per facility protocol Specialty mattress ORTHO/REHAB: Continue PT/OT Prophylaxis: Continue GI and DVT prophylaxis Code Status: Full Resuscitation Disposition: TBD Other: Total patient care time exceeds 52 minutes excluding all procedures. MARCELLE ARRIAGA Jun 28, 2024 09:20
[2024-06-28] MEDS: MAGNESIUM 2GM PREMIX 50ML 50 ML IV PRN (11:30)
[2024-06-28] MEDS ORDERED: BUPIvacaine/PF 0.5% 30ML VIAL ONE (16:35)
[2024-06-28] MEDS ORDERED: EPINEPHrine PF 1MG (1:1,000) 1 MG/ML AMP ONE (16:36)
[2024-06-28] MEDS ORDERED: SUCCINYLCHOLINE CHLORIDE 20 MG/ML 10 ML VIAL ONE (16:42)
[2024-06-28] MEDS ORDERED: LIDOCAINE PF 100MG/5ML (2%) SYRINGE 5ML ONE (16:42)
[2024-06-28] MEDS ORDERED: MIDAZOLAM HCL 1 MG/ML 2ML VIAL ONE (16:43)
[2024-06-28] MEDS ORDERED: FENTanyl CITRate PF 50 MCG/1 ML 2ML VIAL ONE ×2 (16:43→18:16)
[2024-06-28] MEDS ORDERED: rocuRONium bROMide 10MG/1ML 5ML VL ONE ×2 (16:43→18:15)
[2024-06-28] MEDS ORDERED: proPOFol 10 MG/ML 20ML VIAL IV ONE (16:43)
[2024-06-28] MEDS ORDERED: ROPivacaine 0.5% 5MG/ML 30ML ONE (16:55)
[2024-06-28] MEDS ORDERED: ALBUMIN (HUMAN) 5% 250 ML IV ONE ×2 (16:56→18:27)
[2024-06-28] MEDS ORDERED: phenylEPHRINE HCL 10 MG/ML 1ML VIAL IV ONE (16:58)
[2024-06-28] MEDS ORDERED: dexaMETHasone SOD PHOSPHATE 4 MG/ML 1ML VIAL ONE (17:22)
[2024-06-28] MEDS ORDERED: ondanSETRON 4MG INJ ONE (17:22)
[2024-06-28] MEDS: BUPIvacaine/EPI/PF 0.5% 30ML VIAL IJ ONE (17:42)
[2024-06-28] MEDS: acetaMINOPHEN 100 ML ONE (18:38)
[2024-06-28] MEDS ORDERED: GLYCOPYRROLATE 0.2 MG/ML 5 ML VIAL ONE (18:54)
[2024-06-28] MEDS ORDERED: NEOSTIGMINE METHYLSULFATE 1MG/ML IV ONE (18:54)
--- NOTE | 2024-06-28 19:10 | OP ---
Operative Note: DATE OF PROCEDURE: 06/28/24 SURGEON: TIANNA RAMIREZ MD ENGINEERING AID: [[employer]ESS Mahan] ANESTHESIA: [General endotracheal anesthesia] ANESTHESIOLOGIST/SUPERVISOR LIQUEFACTION: [[facility] anesthesia team] PREOPERATIVE DIAGNOSIS: [Small bowel obstruction] POSTOPERATIVE DIAGNOSIS: [Mass causing small bowel obstruction] SYNOPSIS: [Patient with been in and out of the hospital with a small-bowel obstruction. CT scan showed sinus symptoms of a near complete bowel obstruc tion. Exploratory laparoscopy with lysis of adhesions for approximately 2 hours. Identification of a large mass causing obstruction with multiple loops of bowel Small bowel resection Healthy bowel anastomosis All sponges and instruments were accounted for at the end the case Patient tolerated the procedure well, there no complications] PROCEDURE: [Exploratory laparoscopy with enterolysis for approximately 2 hours, small bowel resection] ESTIMATED BLOOD LOSS: [Less than 100 cc] INDICATIONS: [Small bowel obstruction] DESCRIPTION OF PROCEDURE: [On day of surgery patient presented to the hospital. Patient was brought back to operating room. Positioned in the supine position. Preoperative antibiotics were given. Bilateral SCDs were placed. Patient was intubated. Patient then was prepped and draped the usual fashion. Skin incision made in the right upper quadrant. 5 mm trocars inserted under direct vision. Abdomen was insufflated to 15 mm Hg. No injury to omentum bowel was noted then a 5 mm ports placed in the right mid abdomen, 5 mm ports placed in right low abdomen of immediate note there was loops of small bowel adherent to the anterior abdominal wall. Careful sharp enterolysis was undertaken. Once the mass was from the anterior abdominal wall evaluation of the bowel that was twisted onto itself was undertaken. There appeared to be multiple interloop adhesions. Careful sharp enterolysis was then undertaken. A total of 2 hours was taken in sharp enterolysis and verification of bowel health. This was very difficult due to the fact that there appeared to be normally dense adhesions but also reactive tissue. During this process I could easily palpate a mass but was not sure whether this was a inflammatory process or a malignancy. Once all of this was done there appeared to be a mass that was causing the bowel obstruction. It did involve multiple loops of bowel. At this point in time due to the fact that it did involve multiple loops the decision to do a mini-laparotomy so I could palpate the lesion was made. Mini-laparotomy was made in the bowel was exteriorized. The mass itself was fairly dense and did n ot involve the mesentery as well as the bowel. Was decided that a bowel resection with the best next step. The bowel proximal to the mass was transected with a DANAE stapler. The bowel distal the mass was transected with a DANAE stapler. The mesentery was then with a EnSeal device. Then a [id number] functional end-to-end small bowel anastomosis was created with the DANAE stapler. The staple lines were then imbricated with silk suture. The mesenteric defect was closed with silk suture.] TIANNA RAMIREZ MD Jun 28, 2024 19:10
--- NOTE | 2024-06-28 20:25 | NUR ---
RECEIVED PATIENT PATIENT WAS BROUGHT VIA BED FROM PACU BY RADHA SOSA AT THIS TIME. PATIENT IS AWAKE AND ORIENTED [id number] AT BEDSIDE. PATIENT HAS 6F PHILIP AND NG TUBE INSERTED IN LEFT NARE. PATIENT IS WEARING ABDOMINAL BINDER, DRESSINGS ARE CLEAN AND DRY.
[2024-06-28] MEDS: SUGAMMADEX SODIUM 200 MG/2 ML VIAL IV ONE (20:55)
[2024-06-28] MEDS: morPHINE 2 MG SYG IVP PRN (21:35)
[2024-06-29] VITALS (9 sets, daily range): BP systolic 107–131; BP diastolic 50–68; PULSE 64–76; RESP 16–18; TEMP 97.7–98.1; O2SAT 98
[2024-06-29] MEDS: ketOROlac 30MG VIAL (30MG/ML) IVP PRN (06:47)
[2024-06-29] MEDS ORDERED: methoCARBamol 500 MG TABLET PO SCH (09:00)
--- NOTE | 2024-06-29 09:10 | PN ---
[facility] PROGRESS NOTE Date Patient Seen: Jun 29, 2024 Time of Visit: 08:58 Supervising Physician: [Dr. Matos] Primary Care Physician: [Dr. Daisy Pro] Outpatient Specialists: [ ] Inpatient Consults: [Dr. Craven] PROBLEM LIST: Small bowel obstruction Syncope, POA Possible vasovagal Acute renal failure, creatinine 1.7 on admission baseline 0.7 on 04/26/24 likely prerenal d/t hypovolemia in vomiting Chronic diastolic heart failure, EF of 60-65% per echo 04/10/2024 Right pleural effusion Hypothyroidism Diabetes mellitus Hypertension Plan: Continue zosyn for ESBL ecoli, DC after 07/02 Continue LR until diet established Remove NGT Clear liquid diet per general surgery Start PT Pain control, stool softener, abdominal binder Convert to PO levothyroxine in AM Cartoid doppler normal Orthostatic vital signs pending Continue reglan TID PRN Continue protonix Echo completed on 04/10/24 Continue IV fluids until completed Monitor mastic floor layer and replace electrolytes BMP, Mg2+ in AM Resume home meds, hold lisinopril and metformin INTERVAL HISTORY: [Patient WBC remains in normal limits. She has elevated TSH at 10. UA is positive for leukocyte esterase. Pending repeat labs today. She is hemodynamically stable, no fever; on room air. Findings on CT abdomen are consistent with small bowel obstruction at the proximal jejunal level. Urine culture is growing GNR. Patient continues on rocephin.] 06/27 patient is evaluated at bedside. She has NG tube in place, no output overnight. Has a total of about 300 mL of bilious appearing fluid. Patient reports having a bowel movement just prior to me seeing her but was small. She is followed by General surgery with recommendation to repeat CT abdomen with contrast. Her urine cultures positive for ESBL E coli, we will adjust antibiotics as indicated. Lactic acid is 1.1. Her abdomen is non distended, has pain with palpation to epigastric region. 06/[address] abdomen with contrast shows a high grade obstruction to proximal jejunum but is incomplete as there is contrast visible past the obstruction, per report. General surgery is recommending exploratory laparoscopy and patient agrees. 06/29 Patient underwent exploratory laparoscopy yesterday with Dr. Navas. Per surgery report patient had lysis of adhesions for approximately 2 hours. They also identified a large mass causing obstruction with multiple loops of bowel. Patient underwent small bowel resection with healthy bowel anastomosis. She continues on Zosyn and LR. Vitals are stable with a blood pressure of 112/55 with a heart rate of 65, afebrile on room air. WBCs are six, hemoglobin 9.5, platelets 264. BNP shows mild hypokalemia at 3.2, hypomagnesemia at 1.5. Both currently replaced. Has been advanced to clear liquids per Dr. Craven. Her pain is controlled, no output per NGT. Has not had a bowel movement or passed gas. REVIEW OF SYSTEMS: 12 point ROS reviewed with patient. Pertinent positives mentioned above. Otherwise negative. PHYSICAL EXAM: GENERAL: alert, weak, awake oriented x 3 HEENT: EOMI, Sclera non icteric, moist mucosa NECK: Supple, no JVD, trachea midline LUNGS: Clear breath sounds bilaterally. No wheezes HEART: Regular rate and rhythm. Normal S1 and S2, without murmurs ABD: Abdomen soft, epigastric tenderness, Bowel sounds present EXT: No clubbing cyanosis or edema NEURO: Alert and oriented to person, follows commands Vital Signs (last 8hr) Date Time Temp Pulse Resp B/P (MAP) Pulse Ox O2 Delivery O2 Flow Rate FiO2 06/29/24 08:00 97.7 65 16 112/55 97 Room Air 21 06/29/24 02:15 64 17 131/68 100 Room Air 06/29/24 01:15 64 18 129/65 99 Room Air LABS: Chemistry Labs: Test 06/29/24 05:48 06/28/24 04:22 Range/Units Whole Blood Glucose 124 H 70-110 MG/DL Sodium Level 142 136-145 mmol/L Potassium Level 3.2 L 3.5-5.1 mmol/L Chloride Level 104 101-111 mmol/L Carbon Dioxide Level 26 21-32 mmol/L Blood Urea Nitrogen 3 L 7-18 mg/dL Creatinine 0.6 0.5-1.0 mg/dL Glomerular Filtration Rate Calc 96 >90 mL/min Random Glucose 56 L 70-105 mg/dL Total Calcium 8.4 L 8.5-10.1 mg/dL Magnesium Level 1.50 L 1.80-2.40 mg/dL DIAGNOSTICS / RADIOLOGY RESULTS: Exploratory laparoscopy [Patient with been in and out of the hospital with a small-bowel obstruction. CT scan showed sinus symptoms of a near complete bowel obstruction. Exploratory laparoscopy with lysis of adhesions for approximately 2 hours. Id entification of a large mass causing obstruction with multiple loops of bowel Small bowel resection Healthy bowel anastomosis All sponges and instruments were accounted for at the end the case Patient tolerated the procedure well, there no complications] PLAN NEURO: Minimize central acting medications as possible. Maintain fall precautions, adequate lighting during the day PULMONARY: Supplemental 02 as needed. Maintain aspiration precautions at all times CARDIOVASCULAR: Follow hemodynamics. Vital signs per facility protocol GI & NUTRITION: Continue with nutritional support. Continue stool softeners and laxatives as needed. KIDNEYS & ELECTROLYTES: Strict monitoring of intake, output and overall fluid balance. Avoid nephrotoxic medications to the extent possible. Medications to be dosed according to renal function. Monitor electrolytes and replace as needed ENDOCRINE: Maintain blood glucose between 100-180 at all times. Hypoglycemia protocol in place INFECTIOUS DISEASE: Trend temperature, WBC and procalcitonin level Follow cultures, deescalate antibiotics as soon as possible. Panculture if new onset fever ONCOLOGY/HEMATOLOGY/COAGULATION: Monitor for s/s of bleeding Monitor hemoglobin, coagulation studies as needed SKIN: Pressure ulcer prevention per facility protocol Specialty mattress ORTHO/REHAB: Continue PT/OT Prophylaxis: Continue GI and DVT prophylaxis Code Status: Full Resuscitation Disposition: TBD Other: Total patient care time exceeds 35 minutes excluding all procedures. MARCELLE ARRIAGA Jun 29, 2024 09:10
[2024-06-29 09:28] LABS: CREATININE 0.6 mg/dL (0.5-1.0); MAGNESIUM 1.6 mg/dL (1.80-2.40); POTASSIUM 4.1 mmol/L (3.5-5.1)
[2024-06-29] MEDS: methoCARBamol 500 MG TABLET PO SCH (09:30)
--- NOTE | 2024-06-29 11:52 | PN ---
PROGRESS NOTE Date of Service: Jun 29, 2024 Time of Service: 11:51 SUBJECTIVE: [ Patient is status post small bowel resection. Patient indicates the pain is controlled. NG tube output slipped years slightly bilious. However output is not significant.. ] REVIEW OF SYSTEMS PHYSICAL EXAM Awake, alert, oriented x3 Unlabored Regular rate and rhythm Abdomen soft, incisions clean and dry Vital Signs (last 8hr) Date Time Temp Pulse Resp B/P (MAP) Pulse Ox O2 Delivery O2 Flow Rate FiO2 06/29/24 08:00 97.7 65 16 112/55 97 Room Air 21 LABS: Laboratory: Test 06/29/24 11:24 06/29/24 09:14 Range/Units Whole Blood Glucose 146 H 70-110 MG/DL Sodium Level 139 136-145 mmol/L Potassium Level 4.1 3.5-5.1 mmol/L Chloride Level 102 101-111 mmol/L Carbon Dioxide Level 26 21-32 mmol/L Blood Urea Nitrogen 4 L 7-18 mg/dL Creatinine 0.6 0.5-1.0 mg/dL Glomerular Filtration Rate Calc 96 >90 mL/min Random Glucose 134 H 70-105 mg/dL Total Calcium 8.3 L 8.5-10.1 mg/dL Magnesium Level 1.60 L 1.80-2.40 mg/dL DIAGNOSTICS / RADIOLOGY: [ ] ASSESSMENT: [ Small bowel mass. ] PLAN: [Patient is status post small bowel resection. We will do an NG tube clamp trial today. Ambulate. Pulmonary toilet. Await bowel function..] TIANNA RAMIREZ MD Jun 29, 2024 11:52
--- NOTE | 2024-06-29 21:32 | NUR ---
CONTACTED DR RAMIREZ AND GOT AN ORDER TO STRAIGHT CATH Q8HR BLADDER SCAN SHOWS 230ML PATIENT COMPLAINING OF FULLNESS CATHED PATIENT AND OUTPUT 315ML. WILL CONTINUE TO MONITOR VOID
[2024-06-30 03:46] VITALS: BP 97/45; PULSE 74; RESP 16; TEMP 97.9
[2024-06-30] MEDS: levoTHYROxine 100 MCG TABLET PO SCH (05:10)
--- NOTE | 2024-06-30 05:15 | NUR ---
PATIENT VOIDED IN TOILET 200MLS
[2024-06-30 08:00] VITALS: BP 102/46; PULSE 72; RESP 18; TEMP 97.9
--- NOTE | 2024-06-30 10:57 | PN ---
PROGRESS NOTE Date of Service: Jun 30, 2024 Time of Service: 10:55 SUBJECTIVE: [ Patient had a Davila catheter removed yesterday. Initially she had some urinary retention and needed to be straight cath however by this morning patient is voiding by self. Patient denies any pain. Patient indicates she is burping a lot and has not had any flatus or bowel movement. ] REVIEW OF SYSTEMS PHYSICAL EXAM Awake, alert, oriented x3 Unlabored Regular rate and rhythm Abdomen soft, incisions clean and dry, abdomen is slightly distended Vital Signs (last 8hr) Date Time Temp Pulse Resp B/P (MAP) Pulse Ox O2 Delivery O2 Flow Rate FiO2 06/30/24 08:00 97.9 72 18 102/46 97 Room Air 06/30/24 03:46 97.9 74 16 97/45 95 Room Air LABS: Laboratory: Test 06/30/24 05:31 06/29/24 09:14 Range/Units Whole Blood Glucose 102 70-110 MG/DL Sodium Level 139 136-145 mmol/L Potassium Level 4.1 3.5-5.1 mmol/L Chloride Level 102 101-111 mmol/L Carbon Dioxide Level 26 21-32 mmol/L Blood Urea Nitrogen 4 L 7-18 mg/dL Creatinine 0.6 0.5-1.0 mg/dL Glomerular Filtration Rate Calc 96 >90 mL/min Random Glucose 134 H 70-105 mg/dL Total Calcium 8.3 L 8.5-10.1 mg/dL Magnesium Level 1.60 L 1.80-2.40 mg/dL DIAGNOSTICS / RADIOLOGY: [ ] ASSESSMENT: [ Small bowel mass. ] PLAN: [We will bag the patient's diet down to sips of clears. Ambulate. Pulmonary toilet. Await bowel function. If patient gets more distended or increased nausea or emesis then an NG tube we will have to be replaced. This was explained to patient and nurse and they indicate they understand.] TIANNA RAMIREZ MD Jun 30, 2024 10:57
--- NOTE | 2024-06-30 11:35 | PN ---
[facility] PROGRESS NOTE Date Patient Seen: Jun 30, 2024 Time of Visit: 11:31 Supervising Physician: [Dr. Matos] Primary Care Physician: [Dr. Daisy Pro] Outpatient Specialists: [ ] Inpatient Consults: [Dr. Craven] PROBLEM LIST: Small bowel obstruction s/p exploratory laparoscopy with enterolysis and small bowel resection Mass causing obstruction, pending pathology report Syncope, POA Possible vasovagal Acute renal failure, creatinine 1.7 on admission baseline 0.7 on 04/26/24 likely prerenal d/t hypovolemia in vomiting Chronic diastolic heart failure, EF of 60-65% per echo 04/10/2024 Right pleural effusion Hypothyroidism Diabetes mellitus Hypertension Plan: Continue zosyn for ESBL ecoli, DC after 07/02 Monitor GI output IS for pulmonary exercise Continue LR until diet established Diet per general surgery Start PT, ambulate Pain control, stool softener, abdominal binder Convert to PO levothyroxine in AM Cartoid doppler normal Orthostatic vital signs pending Continue reglan TID PRN Continue protonix Echo completed on 04/10/24 Continue IV fluids until completed 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 She has elevated TSH at 10. UA is positive for leukocyte esterase. Pending repeat labs today. She is hemodynamically stable, no fever; on room air. Findings on CT abdomen are consistent with small bowel obstruction at the proximal jejunal level. Urine culture is growing GNR. Patient continues on rocephin.] 06/27 patient is evaluated at bedside. She has NG tube in place, no output overnight. Has a total of about 300 mL of bilious appearing fluid. Patient reports having a bowel movement just prior to me seeing her but was small. She is followed by General surgery with recommendation to repeat CT abdomen with contrast. Her urine cultures positive for ESBL E coli, we will adjust antibiotics as indicated. Lactic acid is 1.1. Her abdomen is non distended, has pain with palpation to epigastric region. 06/[address] abdomen with contrast shows a high grade obstruction to proximal jejunum but is incomplete as there is contrast visible past the obstruction, per report. General surgery is recommending exploratory laparoscopy and patient agrees. 06/29 Patient underwent exploratory laparoscopy yesterday with Dr. Yosef. Per surgery report patient had lysis of adhesions for approximately 2 hours. They also identified a large mass causing obstruction with multiple loops of bowel. Patient underwent small bowel resection with healthy bowel anastomosis. She continues on Zosyn and LR. Vitals are stable with a blood pressure of 112/55 with a heart rate of 65, afebrile on room air. WBCs are six, hemoglobin 9.5, platelets 264. BNP shows mild hypokalemia at 3.2, hypomagnesemia at 1.5. Both currently replaced. Has been advanced to clear liquids per Dr. Craven. Her pain is controlled, no output per NGT. Has not had a bowel movement or passed gas. 06/30 patient did evaluated bedside. Her labs and vitals are within normal limits, on room air. Patient states her pain is minimal, only felt when she coughs. Her abdomen is mildly distended on exam, with hypoactive bowel sounds. She reports not passing any flatulence or bowel movement. Does admit excessive burping. We will continue antibiotics for ESBL in the urine. Her Davila catheter was removed last night, did have a straight cath x1 overnight with 312ml. Start IS for pulmonary exercise. REVIEW OF SYSTEMS: 12 point ROS reviewed with patient. Pertinent positives mentioned above. Otherwise negative. PHYSICAL EXAM: GENERAL: alert, weak, awake oriented x 3 HEENT: EOMI, Sclera non icteric, moist mucosa NECK: Supple, no JVD, trachea midline LUNGS: Clear breath sounds bilaterally. No wheezes HEART: Regular rate and rhythm. Normal S1 and S2, without murmurs ABD: Abdomen soft, epigastric tenderness, Hypoactive bowel sounds present EXT: No clubbing cyanosis or edema NEURO: Alert and oriented to person, follows commands Vital Signs (last 8hr) Date Time Temp Pulse Resp B/P (MAP) Pulse Ox O2 Delivery O2 Flow Rate FiO2 06/30/24 08:00 97.9 72 18 102/46 97 Room Air 06/30/24 03:46 97.9 74 16 97/45 95 Room Air LABS: Chemistry Labs: Test 06/30/24 05:31 06/29/24 09:14 Range/Units Whole Blood Glucose 102 70-110 MG/DL Sodium Level 139 136-145 mmol/L Potassium Level 4.1 3.5-5.1 mmol/L Chloride Level 102 101-111 mmol/L Carbon Dioxide Level 26 21-32 mmol/L Blood Urea Nitrogen 4 L 7-18 mg/dL Creatinine 0.6 0.5-1.0 mg/dL Glomerular Filtration Rate Calc 96 >90 mL/min Random Glucose 134 H 70-105 mg/dL Total Calcium 8.3 L 8.5-10.1 mg/dL Magnesium Level 1.60 L 1.80-2.40 mg/dL DIAGNOSTICS / RADIOLOGY RESULTS: [Reviewed] PLAN NEURO: Minimize central acting medications as possible. Maintain fall precautions, adequate lighting during the day PULMONARY: Supplemental 02 as needed. Maintain aspiration precautions at all times CARDIOVASCULAR: Follow hemodynamics. Vital signs per facility protocol GI & NUTRITION: Continue with nutritional support. Continue stool softeners and laxatives as needed. KIDNEYS & ELECTROLYTES: Strict monitoring of intake, output and overall fluid balance. Avoid nephrotoxic medications to the extent possible. Medications to be dosed according to renal function. Monitor electrolytes and replace as needed ENDOCRINE: Maintain blood glucose between 100-180 at all times. Hypoglycemia protocol in place INFECTIOUS DISEASE: Trend temperature, WBC and procalcitonin level Follow cultures, deescalate antibiotics as soon as possible. Panculture if new onset fever ONCOLOGY/HEMATOLOGY/COAGULATION: Monitor for s/s of bleeding Monitor hemoglobin, coagulation studies as needed SKIN: Pressure ulcer prevention per facility protocol Specialty mattress ORTHO/REHAB: Continue PT/OT Prophylaxis: Continue GI and DVT prophylaxis Code Status: Full Resuscitation Disposition: TBD Other: Total patient care time exceeds 35 minutes excluding all procedures. MARCELLE ARRIAGA Jun 30, 2024 11:35
[2024-06-30 12:00] VITALS: BP 107/53; PULSE 66; RESP 18; TEMP 98
[2024-06-30 16:00] VITALS: BP 114/66; PULSE 71; RESP 18; TEMP 97.6
[2024-06-30] MEDS: traMADol HCL 50 MG TABLET PO PRN (18:05)
[2024-06-30 19:48] VITALS: BP 117/54; PULSE 73; RESP 18; TEMP 98
[2024-07-01 00:03] VITALS: BP 126/59; PULSE 73; RESP 17; TEMP 97.6
[2024-07-01 03:57] VITALS: BP 113/57; PULSE 72; RESP 16; TEMP 98.4
[2024-07-01 08:00] VITALS: BP 125/65; PULSE 70; RESP 17; TEMP 98.6
--- NOTE | 2024-07-01 11:36 | PN ---
PROGRESS NOTE Date of Service: Jul 01, 2024 Time of Service: 11:34 SUBJECTIVE: [ Patient is doing well. Patient had flatus and bowel movements. Patient is tolerating her clear liquid diet. Pain is controlled with oral pain meds.. ] REVIEW OF SYSTEMS PHYSICAL EXAM Awake, alert, oriented x3 Unlabored Regular rate and rhythm Abdomen soft, nontender, nondistended Vital Signs (last 8hr) Date Time Temp Pulse Resp B/P (MAP) Pulse Ox O2 Delivery O2 Flow Rate FiO2 07/01/24 09:30 Room Air* 0 21 07/01/24 08:00 98.6 70 17 125/65 98 Room Air 07/01/24 03:57 98.4 72 16 113/57 96 Room Air LABS: Laboratory: Test 07/01/24 05:26 Range/Units Whole Blood Glucose 74 70-110 MG/DL DIAGNOSTICS / RADIOLOGY: [ ] ASSESSMENT: [ Small bowel mass. ] PLAN: [Patient can be advanced to clear liquid diet. Patient can be discharged home today with follow up with me in two weeks. No lifting greater than 10 lb for two months. After about a week on clear liquids the patient can advance as tolerated..] TIANNA RAMIREZ MD Jul 01, 2024 11:35
[2024-07-01] MEDS ORDERED: METH-662 PO (11:38)
[2024-07-01] MEDS ORDERED: GABA-529 PO (11:38)
[2024-07-01] MEDS ORDERED: TRAM100C3 PO (11:38)
[2024-07-01] MEDS ORDERED: DOCU-116 PO (11:38)
[2024-07-01 12:00] VITALS: BP 123/64; PULSE 71; RESP 17; TEMP 98.3
--- NOTE | 2024-07-01 15:19 | DS ---
[facility] DISCHARGE SUMMARY Date Patient Seen: Jul 01, 2024 Time of Visit: 15:18 Supervising Physician: [Dr. Matos] Primary Care Physician: [Dr. Daisy Pro] Outpatient Specialists: [ ] Inpatient Consults: [Dr. Craven] PROBLEM LIST: Small bowel obstruction s/p exploratory laparoscopy with enterolysis and small bowel resection Mass causing obstruction, pending pathology report Syncope, POA Possible vasovagal Acute renal failure, creatinine 1.7 on admission baseline 0.7 on 04/26/24 likely prerenal d/t hypovolemia in vomiting Chronic diastolic heart failure, EF of 60-65% per echo 04/10/2024 Right pleural effusion Hypothyroidism Diabetes mellitus Hypertension Plan: Continue zosyn for ESBL ecoli, DC after 07/02 Monitor GI output IS for pulmonary exercise Continue LR until diet established Diet per general surgery Start PT, ambulate Pain control, stool softener, abdominal binder Convert to PO levothyroxine in AM Cartoid doppler normal Orthostatic vital signs pending Continue reglan TID PRN Continue protonix Echo completed on 04/10/24 Continue IV fluids until completed 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 Per ED report patient had a near syncopal episode as she stood up from her chair to answer the door while watching TV in her home. As she open the door she felt as if she was going to faint and her neighbor caught her before she could fall. She was discharged from this facility about two months ago on 04/27 where she was treated for severe sepsis secondary to colitis. Her labs on admission were remarkable for markedly elevated creatinine of 1.7, up from her baseline of 0.7 about two months prior. Her blood sugar was 153, troponin 11. CBC and BMP were otherwise unremarkable. She was treated with 1 L NS bolus in the ED. She states she lost consciousness for sometime but did not hit her head or fall down. She denies any cardiac hx or atrial fibrillation but does not have her medications with her. Her EKG showed normal sinus rhythm with a heart rate of 89 and no ectopy per report. She had an echocardiogram on 04/10/2024 which revealed an EF of 60-65%. Patient admits feeling nauseous now. She reported one episode of non-bloody vomit yesterday prior to her episode of syncope. No vomiting. No pain at rest but has epigastric tenderness with deep palpation on exam. She previously had an incomplete bowel obstruction. She is a poor historian. Her repeat CT abdomen findings were consistent with small bowel obstruction at the proximal jejunal level. This study was repeated with contrast and revealed a high grade obstruction to proximal jejunum but is incomplete as there is contrast visible past the obstruction, per report. She underwent exploratory laparotomy on 06/[address] Craven and had lysis of adhesions for approximately 2 hours. He also identified a large mass causing obstruction with multiple loops of bowel. Patient was able to advance diet with clears and tolerated well without abdominal pain, nausea or vomiting. She was able to ambulate well on her own. Abdominal pain from surgery was minimal and exacerbated with coughing. She had abdominal binder. She was cleared for discharge by general surgery to continue clear liquid diet X days. Also advised to F/U with Dr. Craven in 2 weeks post discharge. She was treated with 5 days of Zosyn for ESBL ecoli. CHRONIC PROBLEMS: continue previous management per PCP unless otherwise indicated PLY BANDER FINDINGS/RECOMMENDATIONS: [Clear liquid diet X5 days.] PROCEDURES: PROCEDURE: [Exploratory laparoscopy with enterolysis for approximately 2 hours, small bowel resection] DATE OF PROCEDURE: 06/28/24 SURGEON: TIANNA CRAVEN MD PREOPERATIVE DIAGNOSIS: [Small bowel obstruction] POSTOPERATIVE DIAGNOSIS: [Mass causing small bowel obstruction] DISCHARGE MEDICATIONS: Continue medications as listed below. Start docusate and tramadol for pain. No antibiotics indicated. Pt hemodynamically stable and afebrile at time of discharge. PCP notified of patients admission, hospital course and discharge. Continued Medications: Atorvastatin Calcium (Lipitor) 20 Mg Tab 20 MG PO HS, TAB Docusate Sodium (Colace) 100 Mg Capsule 1 CAP PO BID for 30 Days, #30 CAP 0 Refills Duloxetine HCl (Duloxetine HCl) 60 Mg Capsule.dr 60 MG PO DAILY, CAP Gabapentin (Gabapentin) 100 Mg Capsule 100 MG PO TID, #21 CAP 0 Refills Lisinopril (Lisinopril) 2.5 Mg Tablet 2.5 MG PO HS, TAB Metformin HCl (Metformin HCl) 500 Mg Tablet 500 MG PO AM, TAB Methocarbamol (Robaxin) 750 Mg Tab 500 TAB PO TID, #21 TAB 0 Refills Tramadol HCl (Tramadol HCl ER) 100 Mg Cpbp.25.75 50 MG PO Q6HPRN PRN for PAIN, #28 TAB 0 Refills PHYSICAL EXAM: GENERAL: alert, weak, awake oriented x 3 HEENT: EOMI, Sclera non icteric, moist mucosa NECK: Supple, no JVD, trachea midline LUNGS: Clear breath sounds bilaterally. No wheezes HEART: Regular rate and rhythm. Normal S1 and S2, without murmurs ABD: Abdomen soft, epigastric tenderness, Hypoactive bowel sounds present EXT: No clubbing cyanosis or edema NEURO: Alert and oriented to person, follows commands FOLLOW-UP: Follow-up with PCP in 2-3 days or sooner if needed. Continue medications as prescribed. Remain on clear liquid diet X 5 days per general surgery. F/U with Dr. Craven in 2 weeks for pathology results and routine evaluation. She completed 5 days of Zosyn for ESBL ecoli. No abx upon discharge. RECOMMENDATIONS: See Discharge Instructions This case was seen and discussed with my supervising physician. More than 30 minutes spent on discharge process, including evaluation of the patient, discussion with nursing staff, medication reconciliation and follow-up appointments MARCELLE ARRIAGA Jul 01, 2024 15:19
--- NOTE | 2024-07-01 17:03 | NUR ---
MD cleared pt for discharge, discharge instructions rendered to pt and daughter, both verbalize understanding. Pt discharged at 1650.
== END 2024-07-01 16:50 | disposition home or self-care (01) | DRG 330 ==
LOC: EDH 20:40 → OBSVTOIN 06-25 02:20 → EDHIP 06-25 02:20 → 3CH 06-25 17:00
PROVIDERS: ADMIT Internal Medicine; ATTEND Internal Medicine
PROC: 0DT80ZZ Resection of Small Intestine, Open Approach (ICD-10-PCS; principal; 2024-06-28 16:45)
DX: K56.50 Intestinal adhesions [bands], unspecified as to partial versus complete obstruction (principal); E87.1 Hypo-osmolality and hyponatremia; I50.32 Chronic diastolic (congestive) heart failure; N17.9 Acute kidney failure, unspecified; K56.699 Other intestinal obstruction unspecified as to partial versus complete obstruction; E11.9 Type 2 diabetes mellitus without complications; I11.0 Hypertensive heart disease with heart failure; R55 Syncope and collapse; E03.9 Hypothyroidism, unspecified; E86.1 Hypovolemia; Z79.899 Other long term (current) drug therapy
CPT/HCPCS: 36415; 70450; 74176; 80048; 81001; 82948; 83605; 83735; 84443; 84484; 85025; 85027; 87086; 87186; 93005; 93880; 94640; 94664; 99285; A4450; A4606; G0378; J0171; J0330; J0696; J1100; J1885; J2003; J2250; J2270; J2371; J2405; J2543; J2704; J2710; J2795; J3010; J3475; J3480; J3490; J7030; J7070; J7120; P9045; Q9963; A4600; A4649; A4930; J0665